=== PATIENT | male | born 1950 | race Caucasian/White ===

== ENCOUNTER 2018-04-02 21:30 | Inpatient (IN) | payer MEDICARE ==
--- NOTE | 2018-04-02 23:07 | CT ---
CT OF CERVICAL SPINE PERFORMED WITHOUT CONTRAST ENHANCEMENT: 04/02/18 HISTORY: Neck pain and bilateral extremity weakness associated with multiple falls. Vertebral bodies are normal in height. There is degenerative disc narrowing at C3-4, C4-5, C5-6 and C 6-7 with moderate degenerative facet changes. the facets do appear to be in normal alignment. Some ve ry mild bilateral foraminal narrowing at C2-3 and C3-4 as well as the C4-5 level. There is moderate r ight sided foraminal narrowing at C5-6. There is no CT evidence fracture. The lung apices are clear. IMPRESSION: No CT evidence of fracture of the cervical spine. POS: [facility]
[2018-04-03] MEDS ORDERED: Mag-Al 1200 mg/1200 mg/30 ML UDCUP PO PRN (00:23)
[2018-04-03] MEDS ORDERED: Milk Of Magnesia 30 ML UDCUP PO PRN (00:23)
[2018-04-03] MEDS ORDERED: CCU Electrolyte Replacement 1 EACH IVPB ONE (00:23)
[2018-04-03] MEDS ORDERED: Potassium Chloride 40 MEQ in Premix Bag 1 BAG IVPB PRN (00:39)
[2018-04-03] MEDS ORDERED: CCU ELECTROLYTE REPLACEMENT PROTOCOL FS PRN (00:39)
[2018-04-03] MEDS ORDERED: Potassium Phosphate 15 MMOL in Sodium Chloride 0.9% 250 ML 250 ML IV PRN (00:39)
[2018-04-03] MEDS ORDERED: Magnesium 2 GM/NS 0.9% 100 ML 2 GM in Premix Bag 1 BAG IVPB PRN (00:39)
[2018-04-03] MEDS ORDERED: Potassium Chloride 40 MEQ in Sodium Chloride 0.9% 250 ML 250 ML IVPB PRN (00:39)
[2018-04-03] MEDS ORDERED: Potassium Chloride 20 MEQ TAB PO PRN (00:39)
[2018-04-03] MEDS ORDERED: Potassium Phosphate 12 MMOL in Sodium Chloride 0.9% 250 ML 250 ML IV PRN (00:39)
[2018-04-03] MEDS ORDERED: Potassium Phosphate 9 MMOL in Sodium Chloride 0.9% 100 ML IVPB PRN (00:39)
[2018-04-03] MEDS ORDERED: Magnesium Oxide 400 MG TAB PO PRN ×2 (00:39)
[2018-04-03] MEDS ORDERED: [UNRECOGNIZED DRUG - REMARK] FS SCH (00:45)
[2018-04-03] MEDS: Acetaminophen 325 MG TAB PO PRN ×3 (00:47→14:27)
[2018-04-03] MEDS: Sodium Chloride 0.9% 1,000 ML IV SCH (01:23)
--- NOTE | 2018-04-03 01:56 | HP ---
DATE OF CONSULTATION: 04/02/2018 This is a 50-minute initial evaluation in which greater than 50% of the exam was spent counseling and coordinating patient's care. Remainder of the exam was spent in review of patient's medical records and appropriate imaging studies. CHIEF COMPLAINT: Increased falls over the past 2 weeks with right acute on chronic subdural hematoma . HISTORY OF PRESENT ILLNESS: Mr. Szymanski is a pleasant 67-year-old male who presents to [facility] as a transfer from [place] for the above complaint. The patient states falls are no t unusual for him as he has a component of orthostatic hypotension as well as peripheral neuropathy t hat causes him to lose his balance and have altered gait. He does note, however, over the past 2 wee ks that his falls have increased. He states normally he is a very hard worker and is able to lift 50 -pound bags of feed, but has felt subjective weakness into the bilateral lower extremities. 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 He is on Effient for this and takes a baby aspirin every other day. He currently c omplains of headache in the bilateral frontal area behind the eyes. He normally has neck pain due to arthritis and does state currently he has no increase in his neck pain. Denies radicular symptoms. Review of CT scan from [facility] in [place] shows a very large acute on chronic right-sided subdural h ematoma with 10-mm of midline shift. Review of patient's cervical spine CT appears to be negative fo r any acute findings. PHYSICAL EXAMINATION: The patient is awake, alert, and appropriate. GCS currently is 15. He is in an Ubly collar. He has full strength in the right upper and right lower extremity; however, has sepideh e trace weakness diffusely throughout the right, but also has weakness into the left leg greater than left arm. He does appear to have moderate weakness in dorsiflexion and plantar flexion on the left. He does also have some pronator drift on the left. Eyes: Pupils are equal, round, and reactive bi laterally. He is also appropriately conversant. He has no worrisome myelopathic features on exam. IMPRESSION: Status post multiple falls with acute on chronic subdural hematoma on Effient for histor y of ID and stent. PLAN: Discussed the patient's case and imaging with Dr. Briones. At this time, the patient is neurol ogically stable; however, he will need evacuation of his subdural fluid collection. Therefore, we pl anned to take the patient to the OR tomorrow for right bur hole placement with possibility of a conve rsion to right-sided craniotomy. I would like him to hold his Effient and we will also give him a si x-pack of platelets while he is in the ER. I would like his systolic blood pressure to remain less t montez 150. At this time, I would like him to remain in his collar, although again it does not appear t hat he has any acute fracture on cervical spine. Head of bed should be elevated at 30 and he will be on bed rest and Fragoso has already been placed. We will also consult Critical Care. I did update th e patient's , as well as his daughter who is a family practice physician by phone. We did discus s the risks and benefits of bur hole versus craniotomy and they wish to proceed in the morning. We w ill plan to take him again to the OR in the morning, should his neurologic status change in the meant haily, plan for more emergent intervention. He will be on q.1-hour neuro checks. Please call with any questions or change in patient's neurologic status.
[2018-04-03 04:13] LABS: #Basophils 0.1 thou/uL (0.0-0.2); #Eosinphils 0.2 thou/uL (0.0-0.7); #Lymphocytes 2.1 thou/uL (1.20-3.40); #Neutrophils 4.1 thou/uL (1.40-6.50); %Basophils 0.7 % (0.0-1.0); %Eosinophils 3.2 % (0.0-10.0); %Lymphocytes 27.8 % (21.0-51.0); %Monocytes 12.8 % (0.0-10.0); %Neutrophils 55.4 % (42.0-75.0); Hemoglobin 13.6 g/dL (14.0-18.0); Mean Corpuscular HGB CONC 32.3 g/dL (32.0-36.0); Mean Corpuscular Hemoglobin 28.9 pg (27.0-31.0); Mean Corpuscular Volume 89.5 fL (78.0-98.0); Mean Platelet Volume 7.4 fL (7.4-10.4); Platelet Count 275 thou/uL (130-400); RBC Distribution Width 13.3 % (11.5-14.5); Red Blood Cell (RBC) Count 4.72 mill/uL (4.70-6.10); White Blood Cell (WBC) Count 7.4 thou/uL (4.8-10.8)
[2018-04-03 04:20] LABS: PTT 29.1 SEC (22.9-36.1); Prothrombin Time 13.1 SEC (12.0-14.7)
[2018-04-03 04:37] LABS: Anion Gap 13 mmol/L (10-20); BUN (Urea Nitrogen) 10 mg/dL (8.4-25.7); Calc. Creatinine Clearance 108 mL/min (70-130); Calcium 9.2 mg/dL (7.8-10.44); Carbon Dioxide 29 mmol/L (23-31); Chloride 100 mmol/L (98-107); Estimated GFR-MDRD 75; Glucose 132 mg/dL (80-115); Potassium 3.3 mmol/L (3.5-5.1); Sodium 139 mmol/L (136-145)
[2018-04-03] MEDS: hydrALAZINE 20 MG/ML VIAL SLOW IVP PRN ×4 (04:52→21:38)
[2018-04-03] MEDS ORDERED: Carvedilol 3.125 MG TAB PO SCH (08:30)
[2018-04-03] MEDS: Potassium Chloride 20 MEQ in Premix Bag 1 BAG IVPB SCH ×4 (08:32→14:22)
[2018-04-03] MEDS ORDERED: Sodium Chloride 0.9% 0 ML ONE (08:56)
[2018-04-03] MEDS ORDERED: Lidocaine 0.5%/Epinephrine 1:200,000 50 ml Vial ONE (08:56)
[2018-04-03] MEDS ORDERED: Bacitracin Zinc Ointment 30 gm TUBE ONE (08:57)
[2018-04-03] MEDS ORDERED: Thrombin 5000 UNITS/5 ML VIAL ONE (08:57)
[2018-04-03] MEDS ORDERED: PROPOFOL 20 ML ONE (09:56)
[2018-04-03] MEDS ORDERED: Fentanyl 100 MCG/2 ML VIAL ONE ×2 (09:56→12:05)
[2018-04-03] MEDS ORDERED: Lidocaine 1% PF 5 ML VIAL ONE ×2 (09:56→11:31)
[2018-04-03] MEDS ORDERED: PHENYLEPHRINE-NS 100 MCG/ML 10 ML SYRINGE ONE ×2 (09:59→11:31)
[2018-04-03] MEDS ORDERED: CEFAZOLIN 1 GM VIAL ONE (10:39)
[2018-04-03] MEDS ORDERED: ePHEDrine/0.9% NaCl/PF SYRINGE 50 mg/10 ml ONE ×2 (10:43→11:31)
[2018-04-03] MEDS ORDERED: Sodium Chloride 0.9% 10 ML ONE (10:56)
[2018-04-03] MEDS ORDERED: Ondansetron PF 4 MG/2 ML Vial ONE ×2 (11:00→11:31)
--- NOTE | 2018-04-03 11:06 | PRG ---
DATE OF SERVICE: 04/03/2018 This is a 30-minute initial hospital visit note in which 30 minutes were spent in review the imaging record, evaluation, examination of the patient, and formulation of plan. Greater than 50% of the dorina e was spent in counseling on Mike Szymanski. CHIEF COMPLAINT: Right chronic subdural hematoma with neurologic decline and left-sided hemiplegia. HISTORY OF PRESENT ILLNESS: I reviewed the notes of my colleague Lit Jordan PA-C. Mr. Szymanski i s a 67-year-old man on antiplatelet agent. He has had progressive headache and left-sided weakness. Head CT from [place] demonstrates a large right-sided chronic subdural hematoma. With midline shift, undoubtedly the culprit of his symptoms, I have recommended surgery. On exam, he is drowsy wi th following commands in the right upper and right lower extremity briskly however, with weakness in the left upper extremity and significant weakness on his left upper extremity and significant weaknes s in the left lower extremity. He has received a six pack of platelets. Given his qualitative platel et deficiency due to the medication, I have discussed the case with his family and they wish to proce ed. Informed consent has been obtained and the goals, risks, indications, alternatives, complication s were discussed in detail with the patient's family. They wish to proceed with surgery. DIAGNOSIS: Right-sided chronic subdural hematoma with left-sided weakness and neurologic decline.
[2018-04-03] MEDS ORDERED: PROPOFOL 200 MG/20 ML VIAL ONE (11:31)
--- NOTE | 2018-04-03 11:43 | OP ---
OR: 11. WOUND TYPE: Type 1 wound. SURGEON: Feng Briones M.D. PUBLIC HEALTH CLINICAL NURSE SPECIALIST: Lit Jordan PA-C. A modifier 57 should be added to this surgery as decision to operate was made on the day I saw the colleen gonzales. PREPROCEDURE DIAGNOSIS: Large right-sided chronic subdural hematoma with mass effect, midline shift, and neurological decline, on antiplatelet agent. POSTPROCEDURE DIAGNOSES: Large right-sided chronic subdural hematoma with mass effect, midline shift , and neurological decline, on antiplatelet agent. PROCEDURE: Right frontoparietal haley hole evacuation and placement of subdural drain to treat subdur al hematoma. DESCRIPTION OF PROCEDURE: After informed consent was obtained from the patient and his family, the p atient was brought to OR 11. Proper patient pause and identification was carried out. A small amoun t of hair was clipped in the right frontoparietal region. This area sterilely cleansed, prepared, an d draped. Proper patient pause and identification was carried out. Right frontal and right parietal wounds were infiltrated with lidocaine with epinephrine. Proper patient pause and identification wa s again carried out. This whole area was sterilely cleansed, prepared, and draped. We then opened t he right frontoparietal wounds. Haley holes were fashioned. The dura opened and motor oil fluid was removed consistent with chronic subdural hematoma. I visualized the citlali underneath and copious irrig ation occurred throughout. A red rubber catheter was then placed into the subdural space and secured to the scalp. Wounds were then closed in anatomic layers. The drain was connected to a bag. The p atient then emerged from anesthesia.
[2018-04-03] MEDS ORDERED: Ondansetron HCl/PF 4 MG/2 ML Vial IVP PRN (11:44)
[2018-04-03] MEDS ORDERED: Promethazine HCl 25 MG/ML VIAL IM PRN (11:44)
[2018-04-03] MEDS ORDERED: Promethazine HCl 25 MG/ML VIAL SLOW IVP PRN (11:44)
[2018-04-03] MEDS ORDERED: Dextrose 5% in Water 1,000 ML IV PRN (12:55)
[2018-04-03] MEDS ORDERED: Dextrose 50% Abboject 50 ML SYRINGE SLOW IVP PRN (12:55)
--- NOTE | 2018-04-03 12:55 | CON ---
DATE OF CONSULTATION: 04/03/2018 SERVICE: Pulmonary Medicine. REASON FOR CONSULTATION: ICU patient. HISTORY OF PRESENT ILLNESS: The patient is a 67-year-old white male with past medical history significant for essentially nothing. He was in his usual state of health until 2 weeks ago when he started having clumsiness, weakness on the left side. He was unable to lift 50 pound bags of feed anymore. He started having multiple falls and ultimately came to the emergency department where a subdural hematoma was identified. It was evolving and got larger. He went down for an operation today. Following the craniotomy, he had a significant improvement in neurologic function in the left lower extremity. He denies any current fevers, chills, nausea or vomiting. Other than neurologic symptoms, he was in his usual state of health. PAST MEDICAL HISTORY: 1. Type 2 diabetes mellitus. 2. Hypertension. 3. Dyslipidemia. 4. Coronary artery disease. 5. Gastroesophageal reflux disease. PAST SURGICAL HISTORY: 1. Percutaneous coronary intervention. 2. Right frontoparietal haley hole evacuation and placement of subdural drain. FAMILY HISTORY: Noncontributory. SOCIAL HISTORY: He drinks seldomly. He denies significant smoking, or illicit drug use. He has no exposure to chemicals, dusts, asbestos or tuberculosis. ALLERGIES: No known drug allergies. MEDICATIONS: List of his inpatient medications were reviewed. They were modified. PHYSICAL EXAMINATION: VITAL SIGNS: Afebrile, pulse 83, blood pressure 165/84, respirations 17, saturation 93% on room air. GENERAL: Patient is awake and alert. No apparent distress. LUNGS: Decent air entry with a slightly prolonged expiratory phase. There is no wheezing or rhonchi present. HEART: Normal rate, regular. ABDOMEN: Soft, nontender, nondistended. Bowel sounds are positive. MUSCULOSKELETAL: No cyanosis or clubbing. There is no pitting in the bilateral lower extremities. NEUROLOGIC: Grossly nonfocal. LABORATORY DATA: WBC 7.4, hemoglobin 13.6, platelets 275,000. INR 1.0. Basic metabolic profile, liver function studies are unremarkable. Cardiac enzymes are negative x1. Potassium is 3.3. ASSESSMENT: 1. Subdural hematoma, status post evacuation, postop day #0. 2. Type 2 diabetes mellitus. 3. Hypertension. 4. Coronary artery disease. DISCUSSION AND PLAN: Since the patient is doing so well, we will have his swallow evaluated. If he can swallow, we will give him a diet, and restart some of his home medications. Obviously, antiplatelet drugs will be interrupted. He will remain in the ICU with frequent neuro checks. We will get him to the floor once the drain is removed. 70 minutes have been devoted to this patient in various activities. I personally reviewed all imaging studies and laboratory data noted within this document. For fifty percent of this time, I was interacting with the patient at the bedside or coordinating care with the care team. For the remainder of the time I was immediately available to the patient in the hospital unit. SIDNEY
[2018-04-03] MEDS: Carvedilol 3.125 MG TAB PO SCH (17:33)
[2018-04-03] MEDS: traMADol HCl 50 MG TAB PO PRN (17:33)
[2018-04-03] MEDS ORDERED: CEFAZOLIN 2 GM in Sodium Chloride 0.9% 100 ML IVPB SCH (18:00)
[2018-04-03] MEDS: CEFAZOLIN/Water 2 GM/20 ML SYRINGE SLOW IVP SCH (18:35)
[2018-04-03] MEDS: Famotidine 20 MG TAB PO SCH (21:40)
[2018-04-03] MEDS: Rosuvastatin 10 MG TAB PO SCH (21:40)
[2018-04-03] MEDS: buPROPion 75 MG TAB PO SCH (21:41)
[2018-04-03] MEDS: HumaLOG 300 UNITS/3 ML VIAL SC PRN (21:49)
[2018-04-03] MEDS: HYDROcodone/Acetaminophen 5/325 mg Tablet PO PRN (23:00)
[2018-04-04] MEDS: Acetaminophen 325 MG TAB PO PRN ×2 (01:33→11:39)
[2018-04-04] MEDS: Sodium Chloride 0.9% 1,000 ML IV SCH (01:38)
[2018-04-04] MEDS: CEFAZOLIN/Water 2 GM/20 ML SYRINGE SLOW IVP SCH ×3 (02:05→17:04)
[2018-04-04] MEDS ORDERED: Levothyroxine 150 MCG TAB PO SCH (06:00)
[2018-04-04] MEDS: Levothyroxine Sodium 112 MCG TAB PO SCH (06:42)
[2018-04-04] MEDS: HumaLOG 300 UNITS/3 ML VIAL SC PRN ×3 (06:43→21:36)
[2018-04-04] MEDS: DULoxetine 60 MG CAP PO SCH (09:03)
[2018-04-04] MEDS: Carvedilol 3.125 MG TAB PO SCH ×2 (09:03→17:04)
[2018-04-04] MEDS: buPROPion 75 MG TAB PO SCH ×2 (09:04→21:33)
[2018-04-04] MEDS: HYDROcodone/Acetaminophen 5/325 mg Tablet PO PRN ×2 (09:04→21:33)
[2018-04-04] MEDS: Famotidine 20 MG TAB PO SCH ×2 (09:04→21:34)
[2018-04-04] MEDS: Amlodipine 5 mg/Benazepril 20 mg CAP PO SCH (09:05)
--- NOTE | 2018-04-04 10:08 | PRG ---
DATE OF SERVICE: 04/04/2018 Mr. Szymanski is postoperative day 1 from a right cerebral evacuation of his subdural hematomas. Postop erative CT is satisfactory. We did have to sit the patient up as he has significant COPD and cannot lie flat and as such for pulmonary issues, we sat him postoperatively. This was slow reexpansion of his brain and I am not surprised that he still has irrigation and pneumocephalus. This is obviously found on postoperative CTs. His drain output is 250 mL and I will leave his drain in place. We will slowly start to mobilize him today. Anticipate another day or two in the ICU. He has a good family situation with his and son at home, and as such, I am optimistic about sending him home over th e course of the next 3-5 days. Of note, he is on Ancef. I should note neurologically he is alert an d fully lucid and appropriate. He moves all extremities to command with perhaps trace left-sided wea kness, although he is able to lift his left leg up off the bed along with his left arm and as such, h e is significantly improved compared to before surgery.
[2018-04-04] MEDS ORDERED: Insulin Glargine 9 UNITS in Pre-Filled Syringe 1 EACH SC SCH (11:00)
[2018-04-04] MEDS: HumaLOG 300 UNITS/3 ML VIAL SC SCH ×2 (11:40→17:05)
--- NOTE | 2018-04-04 11:48 | CT ---
PRELIMINARY REPORT/[facility]/EMERGENCY AFTER HOURS PROCEDURE: Addendum created by Zuhair Corona MD on 04/04/2018 6:51 AM Central Time ([place] & [place]) Findings were di scussed with HALLE JOY at 04/04/2018 6:51 AM CDT. Initial Report created on 04/04/2018 5:54 AM Central Time ([place] & [place]) EXAM: CT Head Without Intravenous Contrast EXAM DATE/TIME: 04/04/2018 5:04 AM CLINICAL HISTORY: 67 years old, male; Condition or disease; Aneurysm, cerebral; Patient HX: S/P right haley hole evacuat ion TECHNIQUE: Axial computed tomography images of the head/brain without intravenous contrast. COMPARISON: No relevant prior studies available. FINDINGS: Brain: There is a RIGHT frontoparietal convexity subdural collection with hemorrhage and air post RIG HT frontal haley hole and drain placement. Mass effect on the RIGHT frontoparietal lobe is noted. Midline shift: There is RIGHT to LEFT midline shift of 9 mm. Ventricles: Normal. No ventriculomegaly. Bones/joints: An old RIGHT parietal haley hole is noted Sinuses: Normal as visualized. No acute sinusitis. Mastoid air cells: Normal as visualized. No mastoid effusion. Soft tissues: There are RIGHT scalp surgical sutures. IMPRESSION: RIGHT subdural hemorrhage post drain placement with midline shift of 9 mm. Correlation with prior padmaja ging (not currently available) is advised. Thank you for allowing us to participate in the care of your patient. Dictated and Authenticated by: Zuhair Corona MD 04/04/2018 5:54 AM Central Time ([place] & [place]) FINAL REPORT EMERGENCY AFTER HOURS BRAIN CT WITHOUT IV CONTRAST: Date: 04/04/18 Time: 0505 hours Large right subdural hemorrhage following placement of a right-sided drain with midline shift of appr oximately 0.9 cm to the left. No prior imaging available. Report in agreement with preliminary report given on-call by Anabelle. POS: [facility]
--- NOTE | 2018-04-04 12:22 | PRG ---
DATE OF SERVICE: 04/04/2018 SERVICE: Pulmonary Medicine. INTERVAL HISTORY: The patient is doing great from a respiratory standpoint. Mentation [place], he is d oing fantastic. He demonstrates excellent strength. Otherwise, there were no overnight events. His blood pressures are within our parameters. PHYSICAL EXAMINATION: VITAL SIGNS: Afebrile, pulse 66, blood pressure 153/74, respirations 14, saturation 94% on room air. GENERAL: The patient is awake, alert, in no apparent distress. LUNGS: Decreased air entry. There is a slightly prolonged expiratory phase. No wheezing or rhonchi are appreciated. HEART: Normal rate, regular. ABDOMEN: Soft, nontender, nondistended. Bowel sounds are positive. MUSCULOSKELETAL: No cyanosis or clubbing. There is no pitting in the bilateral lower extremities. NEUROLOGIC: Grossly nonfocal. LABORATORY DATA: Blood sugar ranges from 143-216. IMAGING: CT of the brain demonstrates interval evacuation of the hematoma. A drain is present in th e subdural space with appropriate pneumocephalus. ASSESSMENT: 1. Subdural hematoma, status post evacuation, postoperative day 1. 2. Type 2 diabetes mellitus. 3. Hypertension. 4. Coronary artery disease. DISCUSSION AND PLAN: We will continue our supportive care. The patient is going to remain in the IC U for an additional 24 hours, so we can watch his neurologic status closely. If the drain output dec reases, he will likely have the drain removed today or tomorrow. Pulmonary Critical Care will contin ue to follow along in this location. We will start mobilization efforts by getting the patient out o f bed and into a chair and enlisting physical therapy.
[2018-04-04] MEDS: Docusate 100 MG CAP PO PRN (17:04)
[2018-04-04] MEDS: Rosuvastatin 10 MG TAB PO SCH (21:34)
[2018-04-04] MEDS: Ondansetron PF 4 MG/2 ML Vial IVP PRN (23:55)
[2018-04-05] MEDS: traMADol HCl 50 MG TAB PO PRN ×2 (00:19→14:33)
[2018-04-05] MEDS: CEFAZOLIN/Water 2 GM/20 ML SYRINGE SLOW IVP SCH ×3 (03:28→20:31)
[2018-04-05] MEDS: Sodium Chloride 0.9% 1,000 ML IV SCH ×2 (03:29→03:36)
[2018-04-05] MEDS: Levothyroxine Sodium 112 MCG TAB PO SCH (05:32)
[2018-04-05] MEDS: HYDROcodone/Acetaminophen 5/325 mg Tablet PO PRN ×4 (05:32→23:47)
[2018-04-05] MEDS: Ondansetron PF 4 MG/2 ML Vial IVP PRN (05:35)
[2018-04-05] MEDS: HumaLOG 300 UNITS/3 ML VIAL SC SCH ×3 (07:55→17:02)
[2018-04-05] MEDS: Famotidine 20 MG TAB PO SCH ×2 (08:16→20:45)
[2018-04-05] MEDS: Carvedilol 3.125 MG TAB PO SCH ×2 (08:16→17:02)
[2018-04-05] MEDS: DULoxetine 60 MG CAP PO SCH (08:16)
[2018-04-05] MEDS: buPROPion 75 MG TAB PO SCH ×2 (09:00→20:45)
[2018-04-05] MEDS ORDERED: Insulin Glargine 9 UNITS in Pre-Filled Syringe 1 EACH SC SCH (09:00)
[2018-04-05] MEDS: Amlodipine 5 mg/Benazepril 20 mg CAP PO SCH (09:00)
--- NOTE | 2018-04-05 09:23 | PRG-2 ---
DATE OF SERVICE: 04/05/2018 Mr. Szymanski is now postoperative day #2, having undergone right-sided bur hole placement for evacuatio n of acute on chronic subdural hematoma. He is slightly sleepier today than he was yesterday, but GC S is 15. He follows commands equally with perhaps some trace weakness into the left lower extremity similar to what it was yesterday. He does state that he did not sleep very well and feels that he mann s less energy today, but otherwise denies headache, blurred vision, nausea, vomiting or changes in le ft extremity weakness. His drain slowly trend down and appears as though it has put out roughl y 200 mL in the last 24 hours. We will continue to drain as well as and at this time, monitor his neurologic exam, although it does not appear that he needs repeat head CT at this time. Likely, he will be ready for transition to the floor tomorrow, but again, we will need to continue to monitor his status. Please call with any changes in the patient's neurologic status.
--- NOTE | 2018-04-05 09:32 | PRG ---
DATE OF SERVICE: 04/05/2018 SERVICE: Pulmonary Medicine INTERVAL HISTORY: The patient is doing okay from a respiratory standpoint. He is breathing comforta george. There has been no interval change to his condition. He denies any current fevers, chills, naus ea or vomiting. Neurologically, he is intact. He has a drain that is in place. It is currently cla mped. PHYSICAL EXAMINATION: VITAL SIGNS: Afebrile, pulse 89, blood pressure 138/89, respirations 19, saturation 94% on room air. GENERAL: The patient is awake, alert, in no apparent distress. LUNGS: Excellent air entry. There are no crackles, wheezing or rhonchi present. There is no prolon ged expiratory phase. HEART: Normal rate, regular. ABDOMEN: Soft, nontender, nondistended. Bowel sounds are positive. MUSCULOSKELETAL: No cyanosis or clubbing. There is no pitting in the bilateral lower extremities. NEUROLOGIC: Grossly nonfocal. LABORATORY DATA: Blood sugars ranged from 145-235. His evening sugar is most elevated. ASSESSMENT: 1. Subdural hematoma, status post evacuation, postoperative day #2. 2. Type 2 diabetes mellitus. 3. Hypertension. 4. Coronary artery disease. DISCUSSION AND PLAN: I will increase our long-acting insulin a touch. Otherwise, supportive managem ent will be continued while we continue our frequent neuro checks in the ICU. The patient will remai n in place until the drain is out and he is stable for a period of time.
[2018-04-05] MEDS ORDERED: Insulin Glargine 3 UNITS in Pre-Filled Syringe 1 EACH SC SCH (09:45)
[2018-04-05] MEDS: HumaLOG 300 UNITS/3 ML VIAL SC PRN ×2 (11:42→17:02)
--- NOTE | 2018-04-05 15:24 | PQF ---
JESUS CARLSON JR, JASON MD [id number] CLINICAL DOCUMENTATION IMPROVEMENT CLARIFICATION FORM: ICD-10 Updated PLEASE DO AN ADDENDUM TO THE PROGRESS NOTE WITH ANY DOCUMENTATION UPDATES OR ADDITIONS AND CARRY THROUGH TO DC SUMMARY. THANK YOU. DATE: 04-05-18 ATTN: DR. SANDS Please exercise your independent, professional judgment in responding to the clarification form. Clinical indicators are provided on the bottom of this form for your review Please check appropriate box(s): [ ] Cerebral edema / Vasogenic edema - W/ Right-sided subdural hematoma [ ] Compression of brain - W/ Right -sided subdural hematoma [ ] Other diagnosis [ ] Unable to determine For continuity of documentation, please document condition throughout progress notes and discharge summary. Thank You. CLINICAL INDICATORS - SIGNS / SYMPTOMS / LABS 10-12 H&P (BENITA): ACUTE ON CHRONIC RIGHT-SIDED SUBDURAL HEMATOMA W/ 10-MM OF MIDLINE SHIFT CT SCAN FROM [facility] ACUTE ON CHRONIC RIGHT-SIDED SURBDURAL HEMATOMA W/ 10-MM OF MIDLINE SHIFT 04-03 (SANDS): MIDLINE SHIFT 10-13 (SANDS): LARGE RIGHT-SIDED CHRONIC SUBDURAL HEMATOMA W/ MASS EFFECT, MIDLINE SHIFT, AND NEUROLOGICAL DECLINE, ON ANTIPLATELET AGENT RISK FACTORS 10-12 H&P (BENITA): ACUTE ON CHRONIC RIGHT-SIDED SUBDURAL HEMATOMA W/ 10-MM OF MIDLINE SHIFT - (SANDS): LARGE RIGHT-SIDED CHRONIC SUBDURAL HEMATOMA W/ MASS EFFECT, MIDLINE SHIFT, AND NEUROLOGICAL DECLINE, ON ANTIPLATELET AGENT TREATMENTS: CPOE: CCU MONITORING - (SANDS - OP NOTE): RIGHT FRONTOPARIETAL ANN HOLE EVACUATION AND PLACEMENT OF SUBDURAL DRAIN TO TREAT SUBDURAL HEMATOMA THANK YOU, LAQUITA (This form is maintained as a part of the permanent medical record) 2015 [employer]. All Rights Reserved Laquita Barrera RN, BS [email or web address] [facility]
[2018-04-05] MEDS: Rosuvastatin 10 MG TAB PO SCH (20:45)
[2018-04-05] MEDS: Acetaminophen 325 MG TAB PO PRN (22:24)
[2018-04-06] MEDS: CEFAZOLIN/Water 2 GM/20 ML SYRINGE SLOW IVP SCH ×2 (01:58→11:59)
[2018-04-06] MEDS: traMADol HCl 50 MG TAB PO PRN ×2 (01:58→12:35)
[2018-04-06] MEDS: Sodium Chloride 0.9% 1,000 ML IV SCH (01:59)
[2018-04-06] MEDS: HumaLOG 300 UNITS/3 ML VIAL SC PRN ×3 (06:26→17:12)
[2018-04-06] MEDS: Levothyroxine Sodium 112 MCG TAB PO SCH (06:30)
[2018-04-06] MEDS: Insulin Glargine 12 UNITS in Pre-Filled Syringe 1 EACH SC SCH (08:33)
[2018-04-06] MEDS: Carvedilol 3.125 MG TAB PO SCH ×2 (08:34→17:10)
[2018-04-06] MEDS: HYDROcodone/Acetaminophen 5/325 mg Tablet PO PRN ×2 (08:34→15:42)
[2018-04-06] MEDS: buPROPion 75 MG TAB PO SCH (08:34)
[2018-04-06] MEDS: HumaLOG 300 UNITS/3 ML VIAL SC SCH ×3 (08:34→17:11)
[2018-04-06] MEDS: DULoxetine 60 MG CAP PO SCH (08:34)
[2018-04-06] MEDS: Famotidine 20 MG TAB PO SCH ×2 (08:35→21:18)
[2018-04-06] MEDS: Amlodipine 5 mg/Benazepril 20 mg CAP PO SCH (08:35)
[2018-04-06] MEDS ORDERED: Nitroglycerin 0.4 MG TAB (25 Tab Bottle) SL PRN (10:06)
[2018-04-06] MEDS ORDERED: Diazepam 5 MG TAB PO PRN (10:06)
[2018-04-06] MEDS ORDERED: Furosemide 20 MG TAB PO PRN (10:06)
[2018-04-06] MEDS: Docusate 100 MG CAP PO PRN (10:28)
[2018-04-06] MEDS: Ondansetron PF 4 MG/2 ML Vial IVP PRN ×2 (11:38→17:16)
--- NOTE | 2018-04-06 11:44 | PRG ---
DATE OF SERVICE: 04/06/2018 SERVICE: Pulmonary Medicine. INTERVAL HISTORY: The patient has 2 big complaints today. He has a continuous headache. The Tyleno l and Durand is really not touching him. He typically takes Aleve for these types of things at home. He also has complaints that the Fragoso catheter still in place. Otherwise, there has been no interva l change to his condition. Neurologically, he is intact. He denies any fevers, chills, nausea, vomi ting or shortness of breath, otherwise. OBJECTIVE: VITAL SIGNS: Afebrile, pulse 56, blood pressure 151/79, respirations 12, saturation 96% on room air. GENERAL: The patient is awake, alert, no apparent distress. LUNGS: Excellent air entry. There is no prolonged expiratory phase or wheezing present. HEART: Normal rate and regular. ABDOMEN: Soft, nontender, nondistended. Bowel sounds are positive. MUSCULOSKELETAL: No cyanosis or clubbing. There is no pitting in the bilateral lower extremities. NEUROLOGIC: Grossly nonfocal. LABORATORY DATA: Blood sugars ranged from 144-235. ASSESSMENT: 1. Subdural hematoma, status post evacuation, postoperative day #3. 2. Type 2 diabetes mellitus. 3. Hypertension. 4. Coronary artery disease. We will further increase her long-acting insulin. Once the drain is out, if he remains neurologicall y intact, he could be transitioned to the floor. At that location, of note, he will have no further need for Pulmonary or Critical Care opinion. As such, I will sign off. Please call with additional questions or concerns moving forward.
[2018-04-06] MEDS: Acetaminophen 325 MG TAB PO PRN (12:35)
--- NOTE | 2018-04-06 12:43 | PRG ---
DATE OF NOTE: 04/06/2018 Mr. Szymanski is postoperative day 3 from right-sided frontal and parietal bur hole evacuation for subdu ral hematoma. His drain output has been approximately 450 mL. We will plan to remove this. At this point, the drainage has diminished in rate. He neurologically is intact and very conversant certain ly much improved compared to before surgery. We will plan to transfer him to the floor and mobilize him more. His Fragoso catheter may be removed. If he meets criteria potentially tomorrow, the next da y he may be dismissed. He has a good family structure at home.
--- NOTE | 2018-04-06 13:12 | ULT ---
BILTERAL LOWER EXTREMITY VENOUS ULTRASOUND WITH DOPPLER: HISTORY: Immobility since surgery. COMPARISON: None. TECHNIQUE: Lloyd scale, color flow, Doppler imaging with spectral waveform analysis is performed of the left and right lower extremity system. FINDINGS: Bilaterally, there is compressibility, presence of flow, and augmentation of the common femoral vein, femoral vein, and popliteal vein. There is flow in bilateral greater saphenous veins, profunda vein s, and posterior tibial veins. IMPRESSION: No evidence of thrombus in the left or right lower extremity deep venous system. POS: [facility]
[2018-04-06] MEDS: metFORMIN 500 MG TAB PO SCH (17:10)
[2018-04-06] MEDS ORDERED: Famotidine 20 MG TAB PO SCH (21:00)
[2018-04-06] MEDS ORDERED: Carvedilol 3.125 MG TAB PO SCH (21:00)
[2018-04-06] MEDS: Rosuvastatin 10 MG TAB PO SCH ×2 (21:18→21:29)
[2018-04-07] MEDS: hydrALAZINE 20 MG/ML VIAL SLOW IVP PRN (00:36)
[2018-04-07] MEDS: HYDROcodone/Acetaminophen 5/325 mg Tablet PO PRN ×2 (03:26→16:27)
[2018-04-07] MEDS: Acetaminophen 325 MG TAB PO PRN (05:20)
[2018-04-07] MEDS ORDERED: Levothyroxine Sodium 112 MCG TAB PO SCH (06:00)
[2018-04-07] MEDS: Levothyroxine Sodium 112 MCG TAB PO SCH (06:25)
[2018-04-07] MEDS: HumaLOG 300 UNITS/3 ML VIAL SC SCH ×3 (06:26→17:27)
[2018-04-07 06:37] VITALS: BMI 33.8
[2018-04-07] MEDS: metFORMIN 500 MG TAB PO SCH ×2 (08:25→17:27)
[2018-04-07] MEDS: Carvedilol 3.125 MG TAB PO SCH ×2 (08:25→17:27)
[2018-04-07] MEDS: Potassium Chloride 10 MEQ TAB PO SCH (08:26)
[2018-04-07] MEDS: Bupropion 150 MG XL TAB PO SCH (08:26)
[2018-04-07] MEDS: Amlodipine 5 mg/Benazepril 20 mg CAP PO SCH (08:26)
[2018-04-07] MEDS: DULoxetine 60 MG CAP PO SCH (08:26)
[2018-04-07] MEDS: Insulin Glargine 12 UNITS in Pre-Filled Syringe 1 EACH SC SCH (08:27)
[2018-04-07] MEDS: Fludrocortisone Acetate 0.1 MG TAB PO SCH (08:27)
[2018-04-07] MEDS: Famotidine 20 MG TAB PO SCH ×2 (08:27→20:20)
[2018-04-07] MEDS: lamoTRIgine 100 MG TAB PO SCH (08:27)
--- NOTE | 2018-04-07 08:50 | PQF ---
JESUS CARLSON JR, JASON MD [id number] CCU-[id number] CLINICAL DOCUMENTATION IMPROVEMENT CLARIFICATION FORM: ICD-10 Updated PLEASE DO AN ADDENDUM TO THE PROGRESS NOTE WITH ANY DOCUMENTATION UPDATES OR ADDITIONS AND CARRY THROUGH TO DC SUMMARY. THANK YOU. DATE: 04-05-18 ATTN: DR. SANDS Please exercise your independent, professional judgment in responding to the clarification form. Clinical indicators are provided on the bottom of this form for your review Please check appropriate box(s): [ ] Cerebral edema / Vasogenic edema - W/ Right-sided subdural hematoma [ ] Compression of brain - W/ Right -sided subdural hematoma [ ] Other diagnosis [ ] Unable to determine For continuity of documentation, please document condition throughout progress notes and discharge summary. Thank You. CLINICAL INDICATORS - SIGNS / SYMPTOMS / LABS 10-12 H&P (BENITA): ACUTE ON CHRONIC RIGHT-SIDED SUBDURAL HEMATOMA W/ 10-MM OF MIDLINE SHIFT CT SCAN FROM [facility] ACUTE ON CHRONIC RIGHT-SIDED SUBDURAL HEMATOMA W/ 10-MM OF MIDLINE SHIFT 04-03 (SANDS): MIDLINE SHIFT 10-13 (SANDS): LARGE RIGHT-SIDED CHRONIC SUBDURAL HEMATOMA W/ MASS EFFECT, MIDLINE SHIFT, AND NEUROLOGICAL DECLINE, ON ANTIPLATELET AGENT RISK FACTORS 10-12 H&P (BENITA): ACUTE ON CHRONIC RIGHT-SIDED SUBDURAL HEMATOMA W/ 10-MM OF MIDLINE SHIFT - (SANDS): LARGE RIGHT-SIDED CHRONIC SUBDURAL HEMATOMA W/ MASS EFFECT, MIDLINE SHIFT, AND NEUROLOGICAL DECLINE, ON ANTIPLATELET AGENT TREATMENTS: CPOE: CCU MONITORING - (SANDS - OP NOTE): RIGHT FRONTOPARIETAL ANN HOLE EVACUATION AND PLACEMENT OF SUBDURAL DRAIN TO TREAT SUBDURAL HEMATOMA THANK YOU, LAQUITA (This form is maintained as a part of the permanent medical record) 2015 [employer]. All Rights Reserved Laquita Barrera RN, BS [email or web address] Cell [facility]
[2018-04-07] MEDS ORDERED: LAMOTRIGINE PO SCH (09:00)
[2018-04-07] MEDS ORDERED: LIRAGLUTIDE 1.8 MG SC SCH (09:00)
--- NOTE | 2018-04-07 11:16 | PRG ---
DATE OF SERVICE: 04/07/2018 Mr. Szymanski is recovering well on the Neurosurgical Sr. His drain has been removed. He is ambulati ng. His only complaint is a headache. We will plan for dismissal likely tomorrow.
[2018-04-07] MEDS: traMADol HCl 50 MG TAB PO PRN (13:44)
[2018-04-07] MEDS: Ondansetron PF 4 MG/2 ML Vial IVP PRN (16:27)
[2018-04-07] MEDS: Docusate 100 MG CAP PO PRN (20:20)
[2018-04-07] MEDS: Rosuvastatin 10 MG TAB PO SCH ×2 (20:20→22:15)
[2018-04-08] MEDS: HYDROcodone/Acetaminophen 5/325 mg Tablet PO PRN (02:45)
[2018-04-08] MEDS: Levothyroxine Sodium 112 MCG TAB PO SCH (06:45)
[2018-04-08] MEDS: HumaLOG 300 UNITS/3 ML VIAL SC SCH (06:46)
[2018-04-08] MEDS: lamoTRIgine 100 MG TAB PO SCH (08:35)
[2018-04-08] MEDS: Potassium Chloride 10 MEQ TAB PO SCH (08:36)
[2018-04-08] MEDS: Carvedilol 3.125 MG TAB PO SCH (08:36)
[2018-04-08] MEDS: DULoxetine 60 MG CAP PO SCH (08:37)
[2018-04-08] MEDS: metFORMIN 500 MG TAB PO SCH (08:37)
[2018-04-08] MEDS: Fludrocortisone Acetate 0.1 MG TAB PO SCH (08:38)
[2018-04-08] MEDS: Amlodipine 5 mg/Benazepril 20 mg CAP PO SCH (08:38)
[2018-04-08] MEDS: Bupropion 150 MG XL TAB PO SCH (08:39)
[2018-04-08] MEDS: Insulin Glargine 12 UNITS in Pre-Filled Syringe 1 EACH SC SCH (08:39)
[2018-04-08] MEDS: Famotidine 20 MG TAB PO SCH (08:39)
--- NOTE | 2018-04-08 09:50 | PRG ---
DATE OF SERVICE: 04/08/2018 Mr. Szymanski is postoperative day 5 from right-sided frontal haley hole evacuation of chronic subdural h ematoma. He is doing very well. His wounds are healing well. His drain has been removed. Neurolog ically, he is intact. I am very pleased with his outcome at this point. I have asked, he and his wi fe that he hold his dual antiplatelet therapy over the course of the next 4-6 weeks until I can get a head CT to assess his intracranial compartment. We will plan to see him in a couple of weeks to rem ove his мария. He will be dismissed today.
[2018-04-08 13:09] VITALS: BP 137/82; TEMP 98.2
--- NOTE | 2018-04-13 10:30 | PQF ---
JESUS CARLSON JR, JASON MD [id number] CCU-C07 [id number] CLINICAL DOCUMENTATION IMPROVEMENT CLARIFICATION FORM: ICD-10 Updated PLEASE DO AN ADDENDUM TO THE PROGRESS NOTE WITH ANY DOCUMENTATION UPDATES OR ADDITIONS AND CARRY THROUGH TO DC SUMMARY. THANK YOU. DATE: 04-05-18 ATTN: DR. SANDS Please exercise your independent, professional judgment in responding to the clarification form. Clinical indicators are provided on the bottom of this form for your review Please check appropriate box(s): [ ] Cerebral edema / Vasogenic edema - W/ Right-sided subdural hematoma [ ] Compression of brain - W/ Right -sided subdural hematoma [ ] Other diagnosis [ ] Unable to determine In addition, please specify: Present on Admission (POA): [ ] Yes [ ] No [ ] Unable to determine For continuity of documentation, please document condition throughout progress notes and discharge summary. Thank You. CLINICAL INDICATORS - SIGNS / SYMPTOMS / LABS 10-12 H&P (BENITA): ACUTE ON CHRONIC RIGHT-SIDED SUBDURAL HEMATOMA W/ 10-MM OF MIDLINE SHIFT CT SCAN [facility] ACUTE ON CHRONIC RIGHT-SIDED SUBDURAL HEMATOMA W/ 10-MM OF MIDLINE SHIFT 04-03 (WICHO): MIDLINE SHIFT 10-13 (WICHO): LARGE RIGHT-SIDED CHRONIC SUBDURAL HEMATOMA W/ MASS EFFECT, MIDLINE SHIFT, AND NEUROLOGICAL DECLINE, ON ANTIPLATELET AGENT RISK FACTORS 10-12 H&P (BENITA): ACUTE ON CHRONIC RIGHT-SIDED SUBDURAL HEMATOMA W/ 10-MM OF MIDLINE SHIFT - (WICHO): LARGE RIGHT-SIDED CHRONIC SUBDURAL HEMATOMA W/ MASS EFFECT, MIDLINE SHIFT, AND NEUROLOGICAL DECLINE, ON ANTIPLATELET AGENT TREATMENTS: CPOE: CCU MONITORING - (SANDS - OP NOTE): RIGHT FRONTOPARIETAL ANN HOLE EVACUATION AND PLACEMENT OF SUBDURAL DRAIN TO TREAT SUBDURAL HEMATOMA THANK YOU, LAQUITA (This form is maintained as a part of the permanent medical record) 2014 [employer]. All Rights Reserved Laquita Barrera RN, BS [email or web address] [facility]
--- NOTE | 2018-04-27 11:28 | DIS-2 ---
DATE OF ADMISSION: 04/02/2018 DATE OF DISCHARGE: 04/08/2018 DISCHARGE DIAGNOSES: Include, 1. Right acute on chronic traumatic subdural hematoma. 2. Type 2 diabetes mellitus. 3. Hypertension. 4. Dyslipidemia. 5. Coronary artery disease. 6. Gastroesophageal reflux disease. 7. History of myocardial infarction and remote stenting. 8. Possible cerebrovascular accident history. HOSPITAL COURSE: Mr. Szymanski was admitted to [facility] due to left-sided weakness and was n oted to have a large acute on chronic right subdural hematoma. He did undergo right-sided frontal an d parietal haley hole placement for evacuation of subdural hematoma on 04/03/2018 and his surgery was without complication. There was a drain placed and later removed due to satisfactory output. He did require several overnight stays to ensure that he was safe to go home. A venogram was done and niaun d to be negative for DVT. At the time of discharge, the patient had almost complete resolution of hi s left upper and lower extremity weakness and met criteria for discharge. Appropriate patient educat ion and followup appointments were provided for the patient and the patient and his understood t o call the office with questions or concerns prior to his next followup appointment. He was told to stay off all of his anticoagulants including Brilinta and aspirin.
== END 2018-04-08 11:17 | disposition home or self-care (01) | DRG 26 ==
LOC: ERS 21:30 → CCU 23:11 → SURG A 04-06 17:56
PROVIDERS: ADMIT Surgery; ATTEND Surgery
PROC: 00C43ZZ Extirpation of Matter from Intracranial Subdural Space, Percutaneous Approach (ICD-10-PCS; principal; 2018-04-02)
PROC: 30233N1 Transfusion of Nonautologous Red Blood Cells into Peripheral Vein, Percutaneous Approach (ICD-10-PCS; 2018-04-03)
DX: S06.5X9A Traumatic subdural hemorrhage with loss of consciousness of unspecified duration, initial encounter (principal); G81.94 Hemiplegia, unspecified affecting left nondominant side; W18.30XA Fall on same level, unspecified, initial encounter; R29.6 Repeated falls; I95.1 Orthostatic hypotension; G62.9 Polyneuropathy, unspecified; Z86.73 Personal history of transient ischemic attack (TIA), and cerebral infarction without residual deficits; I25.2 Old myocardial infarction; Z79.82 Long term (current) use of aspirin; M19.90 Unspecified osteoarthritis, unspecified site; I25.10 Atherosclerotic heart disease of native coronary artery without angina pectoris; E11.9 Type 2 diabetes mellitus without complications; I10 Essential (primary) hypertension; J44.9 Chronic obstructive pulmonary disease, unspecified; G93.89 Other specified disorders of brain; K21.9 Gastro-esophageal reflux disease without esophagitis; Z95.5 Presence of coronary angioplasty implant and graft
CPT/HCPCS: 36415; 36416; 36430; 70450; 72125; 80048; 85025; 85610; 85730; 86850; 86900; 86901; 90471; 90662; 93970; 96374; G0008; G8978-GP-CK; G8979-GP-CI; J0360; J0690; J2001; J2270; J2405; J2704; J3010; J3480; J3490; J7050; P9035

== ENCOUNTER 2018-05-18 22:07 | Inpatient (IN) | payer MEDICARE ==
[2018-05-18] MEDS ORDERED: Dextrose 50% Abboject 50 ML SYRINGE SLOW IVP PRN (23:24)
[2018-05-18] MEDS ORDERED: Ondansetron ODT 4 MG TAB PO PRN (23:24)
[2018-05-18] MEDS ORDERED: Ondansetron PF 4 MG/2 ML Vial IVP PRN (23:24)
[2018-05-18] MEDS ORDERED: Dextrose 5% in Water 1,000 ML IV PRN (23:24)
[2018-05-19 01:46] LABS: #Eosinphils 0.3 thou/uL (0.0-0.7); #Lymphocytes 2.5 thou/uL (1.20-3.40); #Neutrophils 4.3 thou/uL (1.40-6.50); %Basophils 0.5 % (0.0-1.0); %Eosinophils 3.6 % (0.0-10.0); %Lymphocytes 31.1 % (21.0-51.0); %Monocytes 11.8 % (0.0-10.0); %Neutrophils 52.9 % (42.0-75.0); Hemoglobin 13.5 g/dL (14.0-18.0); Mean Corpuscular Hemoglobin 29.1 pg (27.0-31.0); Mean Corpuscular Volume 88.1 fL (78.0-98.0); Mean Platelet Volume 7.7 fL (7.4-10.4); Platelet Count 254 thou/uL (130-400); RBC Distribution Width 13.5 % (11.5-14.5); Red Blood Cell (RBC) Count 4.64 mill/uL (4.70-6.10); White Blood Cell (WBC) Count 8.2 thou/uL (4.8-10.8)
[2018-05-19 01:57] LABS: Anion Gap 11 mmol/L (10-20); BUN (Urea Nitrogen) 21 mg/dL (8.4-25.7); Calc. Creatinine Clearance 0 mL/min (70-130); Calcium 8.9 mg/dL (7.8-10.44); Carbon Dioxide 31 mmol/L (23-31); Chloride 101 mmol/L (98-107); Estimated GFR-MDRD 74; Glucose 168 mg/dL (80-115); Magnesium 2.3 mg/dL (1.6-2.6); Potassium 3.4 mmol/L (3.5-5.1); Sodium 140 mmol/L (136-145)
[2018-05-19 02:27] LABS: CKMB 1.2 ng/mL (0-6.6); Troponin I Less than 0.010 ng/mL (< 0.028)
[2018-05-19] MEDS: Acetaminophen 500 MG TAB PO SCH ×4 (03:02→17:45)
--- NOTE | 2018-05-19 05:47 | HP ---
ATTENDING SURGEON: Dr. Quispe. TRAUMA ACTIVATION: Not applicable. HISTORY OF PRESENT ILLNESS: Mike Szymanski is a 67-year-old gentleman who presented to [facility] Emergency Room as a transfer from [place] [facility], status post presumed mechanical fall. The patient was seen and evaluated in the [place] Emergency Room and found to have an acute on chronic subdural hemorrhage. The patient has a GCS and has remained a GCS of 15. Neurosurgery was notified and Trauma Services was asked to admit. Upon my evaluation, the patient states that he stood up from his dinning room table and fell suddenly. He denies loss of consciousness. He initially had a headache, but his pain is now 0. He has been seen and evaluated by the Neurosurgical Team. PAST MEDICAL HISTORY: Frequent falls; chronic subdural, status post right haley hole evacuation; CAD; hypothyroidism; hypertension; diabetes; bipolar disorder; peripheral neuropathy; orthostatic hypotension; and cerebellar CVA. PAST SURGICAL HISTORY: Right-sided haley hole evacuation with Dr. Briones, PTCA, and lipoma removal. HOME MEDICATIONS: Include; 1. Metformin 1000 mg b.i.d. 2. Victoza. 3. Lasix 40 mg daily. 4. Carvedilol 25 mg b.i.d. 5. Synthroid 112 mcg daily. 6. Wellbutrin 150 mg b.i.d. 7. Cymbalta 60 mg daily. 8. Ranitidine 75 mg b.i.d. 9. Lamotrigine 200 mg daily. 10. Crestor 10 mg daily. 11. Nitroglycerin tablet 0.4 mg p.r.n. 12. Fludrocortisone 0.1 mg daily. 13. Potassium supplement 10 mEq daily. 14. Amlodipine/benazepril 10/40 mg daily. SOCIAL HISTORY: Lives at home with his . Ambulates with a walker. Occasional alcohol use. Denies tobacco or illicit drug use. FAMILY HISTORY: Significant for mother with COPD and lung cancer, and multiple children with bipolar disorder, Tourette's, and OCD. REVIEW OF SYSTEMS: A 10-point review of systems was performed and negative except as indicated in HPI. Specifically, the patient denies fevers, chills, nausea, vomiting, chest pain, shortness of breath, palpitations, dizziness, or syncopal or presyncopal symptoms. ALLERGIES: NO KNOWN ALLERGIES. LABORATORY FINDINGS: Pending. RADIOGRAPHIC FINDINGS: CT of the brain demonstrated acute on chronic right subdural hematoma with stable amount of midline shift compared to his most recent postoperative CT scan. ASSESSMENT: 1. Status post mechanical fall. 2. Acute on chronic right subdural hematoma. 3. History of frequent falls. 4. History of orthostatic hypotension. 5. History of peripheral neuropathy. 6. History of coronary artery disease. 7. History of hypothyroidism. 8. History of hypertension. 9. History of diabetes. 10. History of bipolar disorder. 11. History of cerebellar cerebrovascular accident. PLAN: Admit to Trauma Services. Neurosurgery recommends q.1 hour neuro checks in ICU overnight. Repeat head CT in a.m. Elevate head of bed greater than 30 degrees. Systolic blood pressure less than 150. Careful pain control with NSAIDs. Recommend PT and OT. Plan for admission was discussed with the patient and family at bedside and all questions were answered at the time of this dictation. Trauma attending has been notified of admission. Job ID: [id number]
[2018-05-19] MEDS: Polyethylene Glycol 3350 17 GM Packet PO SCH (08:37)
[2018-05-19] MEDS: Senokot S 8.6-50 MG TAB PO SCH ×2 (08:37→21:08)
--- NOTE | 2018-05-19 09:14 | CT ---
PRELIMINARY REPORT/[facility]/EMERGENTY AFTER-HOURS PROCEDURE CT Head Without Intravenous Contrast EXAM DATE/TIME: 05/19/2018 3:11 AM CLINICAL HISTORY: 67 years old, male; Known subdural hematoma, F/u right SDH TECHNIQUE: Axial computed tomography images of the head/brain without intravenous contrast. COMPARISON: CT Brain WO Con 04/04/2018 5:04 AM FINDINGS: Brain: Evfiq-mp-ypfxdetr or xbapq-md-frv right frontoparietal subdural hematoma with greatest transve rse thickness of 14 mm. Mild diffuse cerebral atrophy. Midline shift: Midline shift cnzat-ga-uesa of 4-5 mm. Ventricles: Prominent ventricles in this patient with mild diffuse cerebral atrophy. Bones/joints: Old right-sided haley holes. No fracture. Sinuses: Normal as visualized. No acute sinusitis. Mastoid air cells: Normal as visualized. No mastoid effusion. Soft tissues: Posterolateral left scalp vertex soft tissue swelling. IMPRESSION: 1. Cyojg-jz-pbgvahks or kqjbd-uv-xpg right frontoparietal subdural hematoma with greatest transverse thickness of 14 mm. 2. Midline shift gdzst-cj-ehsu of 4-5 mm. 3. Posterolateral left scalp vertex soft tissue swelling. 4. No fracture. Examination results of the patient were discussed with Liz Arshad RN on 05/19/2018 at 3:39 AM INTEGRATED PROGRAM TEACHER. Initial Report created on 05/19/2018 3:37 AM Central Time ([place] & [place]) Dictated and Authenticated by: Haresh Roper MD 05/19/2018 3:37 AM Central Time ([place] & [place]) FINAL REPORT CT OF BRAIN PERFORMED WITHOUT CONTRAST ENHANCEMENT: History: Follow up of right subdural hematoma. Comparison: 05-18-18 FINDINGS: There is some mild ventricular and sulcal prominence. An acute on chronic subdural hematoma over the right frontal convexity is noted. There appears to be some slight increase in the acute subdural bloo d seen more posteriorly along the right frontal parietal convexity with very minimal increase in size of the subdural hematoma in this area. No change in shift of midline structures as compared to the p rior study. No intraparenchymal hemorrhage. Right frontal haley holes are noted. IMPRESSION: 1. Acute on chronic subdural hematoma over the right frontal convexity. Some slight increase in acute blood which was best demonstrated along the more posterior aspect of this subdural collection with v jarett minimal overall increase in size and no additional shift of midline structures. Short term follow up is recommended for assessment. 2. This report is in agreement with the temporary report issued by [facility]. They did not mann ve the benefit of comparison to the previous exam. Those changes are as noted. POS: ELVIE
[2018-05-19] MEDS ORDERED: Potassium Chloride 20 MEQ in Premix Bag 1 BAG IVPB SCH (09:30)
[2018-05-19] MEDS: hydrALAZINE 20 MG/ML VIAL SLOW IVP PRN (09:51)
--- NOTE | 2018-05-19 11:51 | CON ---
DATE OF CONSULTATION: 05/19/2018 HISTORY OF PRESENT ILLNESS: The patient is a 67-year-old male with a past medical history of cardiovascular disease with cardiac stents, known to the Neurosurgery Service for chronic subdural right-sided hematoma, drained with haley holes x2 on 04/03/[address] Briones, who presented to the emergency department tonight after a mechanical fall. The patient reports he was doing well and transitioned to home following the surgery until tonight when he suffered a mechanical fall after loosing his balance hitting the top and left side of his head. The patient denies any LOC, nausea, or vomiting. He was evaluated with CT head on arrival, which is notable for a new small right acute on chronic subdural hematoma. The patient denies any anticoagulant use. He has a GCS of 15. He has no other complaints at this time. PAST MEDICAL HISTORY: Coronary artery disease, bipolar disorder, history of chronic right subdural hematoma drained with haley holes x2 by Dr. Briones on 04/03/2018, diabetes, hypertension, hypothyroid, and GERD. PAST SURGICAL HISTORY: Cardiac stents and haley holes. SOCIAL HISTORY: The patient does not smoke, drink, or use any drugs. He is , lives at home. ALLERGIES: NO KNOWN DRUG ALLERGIES. CURRENT MEDICATIONS: 1. Metformin. 2. Victoza. 3. Lasix. 4. Carvedilol. 5. Levothyroxine. 6. Wellbutrin. 7. Cymbalta. 8. Ranitidine. 10. Crestor. 11. Nitroglycerin. 12. Potassium chloride. 13. Amlodipine-benazepril. REVIEW OF SYSTEMS: Per HPI. PHYSICAL EXAMINATION: VITAL SIGNS: Blood pressure is 163/85, pulse 71, respirations 18, the patient is 97% on room air, and temperature is 98.1. CONSTITUTIONAL: GCS of 15. A and O x4. No acute distress. HEENT: Head, he has small abrasions over the left posterior scalp. Eyes, PERRLA. Extraocular movements intact. ENT, oral mucosa is pink, intact, and moist. He has normal voice. NECK: Nontender to palpation. Active range of motion. No meningismus. No nuchal rigidity. CARDIOVASCULAR: Regular rate and rhythm. RESPIRATORY: He is breathing comfortably, symmetric chest expansion. MUSCULOSKELETAL: He has fair active range of motion of all extremities. No focal motor weakness. No reflex asymmetry. NEUROLOGIC: A and O x4. GCS of 15. No focal neurologic deficits are appreciated. ASSESSMENT AND PLAN: This is a 67-year-old male, known to the Neurosurgical Service for recent haley hole evacuation of chronic right-sided subdural hematoma, who presented tonight for mechanical fall, was found to have a small amount of new acute subdural blood on the right side. There is no mass effect or midline shift. The patient has a GCS of 15, is neurologically intact. We discussed this case with the Trauma Service and they will admit him to the ICU for closed monitoring, q.1 neuro checks overnight. We will plan to repeat his a.m. head CT. Head of bed should be elevated at 30 degrees. His systolic blood pressure should be kept below 150. I discussed this plan with Dr. Senior, who is in agreement. Please reach Neurosurgery for additional questions or concerns. Job ID: [id number] MTDD
[2018-05-19] MEDS ORDERED: Furosemide 20 MG TAB PO PRN (13:39)
[2018-05-19] MEDS ORDERED: Carvedilol 3.125 MG TAB PO SCH (17:00)
[2018-05-19] MEDS: Carvedilol 25 MG TAB PO SCH (17:45)
[2018-05-19] MEDS ORDERED: Rosuvastatin 10 MG TAB PO SCH (21:00)
[2018-05-19] MEDS: Bupropion 150 MG XL TAB PO SCH (21:08)
--- NOTE | 2018-05-19 22:26 | PRG ---
DATE OF SERVICE: 05/19/2018 SUBJECTIVE: I saw Mr. Szymanski earlier this morning. The patient was admitted after midnight with acute on chronic subdural hematoma following a fall. At the time of my evaluation, Radha Coma Scale is 15. The patient is moving all extremities and answering questions appropriately. I reviewed the CT scan of the brain and noted the stable acute on chronic right subdural hematoma. OBJECTIVE: VITAL SIGNS: Include blood pressure 149/86, pulse 66, respiratory rate is 15, and oxygen saturation 97% on room air. HEART: Reveals regular rate and rhythm. LUNGS: Clear to auscultation bilaterally. Breathing regular and unlabored. ABDOMEN: Soft, nontender, nondistended. NEUROLOGIC: Reveals no focal deficits present. PLAN: 1. We will initiate physical and occupational therapy. 2. CT scan of the brain will be repeated in the morning and the patient will be discharged if the radiographic studies and neurologic examination remain stable. Job ID: [id number]
[2018-05-20] MEDS: hydrALAZINE 20 MG/ML VIAL SLOW IVP PRN (00:12)
[2018-05-20] MEDS: Acetaminophen 500 MG TAB PO SCH ×2 (00:17→01:49)
[2018-05-20] MEDS ORDERED: Levothyroxine Sodium 112 MCG TAB PO SCH (06:00)
[2018-05-20] MEDS ORDERED: Acetaminophen 500 MG TAB PO SCH (08:00)
[2018-05-20] MEDS ORDERED: metFORMIN 500 MG TAB PO SCH (08:00)
[2018-05-20] MEDS ORDERED: lamoTRIgine 100 MG TAB PO SCH (09:00)
[2018-05-20] MEDS ORDERED: DULoxetine 60 MG CAP PO SCH (09:00)
[2018-05-20] MEDS ORDERED: Fludrocortisone Acetate 0.1 MG TAB PO SCH (09:00)
[2018-05-20] MEDS ORDERED: Potassium Chloride 10 MEQ TAB PO SCH (09:00)
[2018-05-20] MEDS ORDERED: LIRAGLUTIDE 1.8 MG SC SCH (09:00)
[2018-05-20] MEDS: Carvedilol 25 MG TAB PO SCH (09:03)
[2018-05-20] MEDS: Polyethylene Glycol 3350 17 GM Packet PO SCH (09:03)
[2018-05-20] MEDS: Senokot S 8.6-50 MG TAB PO SCH (09:04)
[2018-05-20] MEDS: Bupropion 150 MG XL TAB PO SCH (09:04)
[2018-05-20 11:14] VITALS: BP 154/77; TEMP 98
--- NOTE | 2018-05-20 15:24 | PRG ---
DATE OF SERVICE: 05/20/2018 SUBJECTIVE: The patient was seen and examined. I agree with Kristen Pimentel's evaluation. The patient is a 67-year-old man, status post haley hole evacuation of chronic subdural hematoma, who was admitted after a mechanical fall. CT scan shows a tiny amount of acute subdural blood on top of chronic subdural fluid. The degree of mass effect is modest and he is clinically intact. Repeat CT scan is satisfactory. I recommend discharge and I have no additional treatment plans. He already has a followup scheduled with Dr. Briones in 4 weeks and he will keep this. Job ID: [id number]
--- NOTE | 2018-05-21 11:21 | DIS ---
DATE OF ADMISSION: 05/18/2018 DATE OF DISCHARGE: 05/20/2018 RESIDENT: Philip Mistry MD. ADMITTING ATTENDING: Kirk Quispe MD. DISCHARGE ATTENDING: Jose Roberto Calix MD CONSULTS: Neurosurgery. PROCEDURE: On 05/19/2018, brain CT. IMPRESSION: Acute on chronic subdural hematoma over the right frontal convexity, some slight increase in acute blood which was best demonstrated along the more posterior aspect of the subdural collection with minimal overall increase in size and no additional shift of midline structures. Short-term followup is recommended for assessment. This report is in agreement with temporary report issued by [facility]. PRIMARY DIAGNOSIS: Acute on chronic right subdural hematoma. SECONDARY DIAGNOSES: 1. Frequent falls. 2. Chronic subdural hematoma, status post haley hole evacuation. 3. Coronary artery disease. 4. Hypothyroidism. 5. Hypertension. 6. Diabetes. 7. Bipolar disorder. 8. Orthostatic hypertension. DISCHARGE MEDICATIONS: 1. Furosemide 40 mg p.o. daily p.r.n. 2. Fludrocortisone acetate 0.1 mg p.o. daily. 3. Ranitidine 75 mg p.o. b.i.d. 4. Nitroglycerin 0.4 mg sublingual q.5 minutes p.r.n. 5. Metformin 1000 mg p.o. b.i.d. 6. Rosuvastatin 10 mg p.o. at bedtime. 7. Victoza 1.8 mg subcutaneous daily. 8. Potassium chloride 10 mEq p.o. daily. 9. Duloxetine 60 mg p.o. daily. 10. Bupropion one tablet p.o. b.i.d. 150 mg. 11. Levothyroxine sodium 112 mcg p.o. daily. 12. Carvedilol 25 mg p.o. b.i.d. 13. Lamotrigine 200 mg p.o. daily. 14. Acetaminophen 1000 mg p.o. q.8 hours p.r.n. DISCONTINUED MEDICATIONS: None. HISTORY OF PRESENT ILLNESS AND HOSPITAL COURSE: This is a 67-year-old gentleman with history of chronic subdural hematoma, status post haley hole surgery, who presented to the ER after a mechanical fall. The patient has history of frequent falls and had no loss of consciousness on fall. Brain CT on admission showed small acute on chronic subdural hematoma. Though the patient was showing no neurologic deficit, the patient was admitted with serial neurological exams, and after one day showing no changes, the patient was deemed safe for discharge with close outpatient followup. All other medical problems were managed with home medications as listed above. DISPOSITION: Stable. DISCHARGE INSTRUCTIONS: Location: Home. Diet: No restrictions. Activity: As tolerated. FOLLOWUP: 1. With Dr. Senior in 7 days. 2. With primary care physician, Dr. Rekha Guthrie, in [address] Uri Holloway in 3 to 4 weeks. Job ID: [id number]
== END 2018-05-20 13:52 | disposition home or self-care (01) | DRG 87 ==
LOC: ERS 22:07 → CCU 22:45 → SJJU 05-19 14:45
PROVIDERS: ADMIT Specialist; ATTEND Specialist
DX: S06.5X0A Traumatic subdural hemorrhage without loss of consciousness, initial encounter (principal); W19.XXXA Unspecified fall, initial encounter; E11.42 Type 2 diabetes mellitus with diabetic polyneuropathy; I25.10 Atherosclerotic heart disease of native coronary artery without angina pectoris; I10 Essential (primary) hypertension; F31.9 Bipolar disorder, unspecified; Z86.73 Personal history of transient ischemic attack (TIA), and cerebral infarction without residual deficits
CPT/HCPCS: 36415; 36416; 70450; 82553; 83735; 84100; 84484; 99285; G0390; G8978-GP-CJ; G8979-GP-CI; G8987-GO-CI; G8988-GO-CI; G8989-GO-CI; J0360; J3480; Q0162

== ENCOUNTER 2018-06-19 12:52 | Inpatient (IN) | payer MEDICARE ==
[2018-06-19 14:13] LABS: #Basophils 0.1 thou/uL (0.0-0.2); #Eosinphils 0.4 thou/uL (0.0-0.7); #Lymphocytes 2.2 thou/uL (1.20-3.40); #Monocytes 0.7 thou/uL (0.11-0.59); #Neutrophils 5.9 thou/uL (1.40-6.50); %Basophils 0.9 % (0.0-1.0); %Eosinophils 4.3 % (0.0-10.0); %Lymphocytes 23.6 % (21.0-51.0); %Monocytes 7.8 % (0.0-10.0); %Neutrophils 63.4 % (42.0-75.0); Hemoglobin 14.3 g/dL (14.0-18.0); Mean Corpuscular HGB CONC 33.2 g/dL (32.0-36.0); Mean Corpuscular Hemoglobin 28.9 pg (27.0-31.0); Mean Corpuscular Volume 87.1 fL (78.0-98.0); Mean Platelet Volume 7.7 fL (7.4-10.4); Platelet Count 234 thou/uL (130-400); RBC Distribution Width 13.6 % (11.5-14.5); Red Blood Cell (RBC) Count 4.96 mill/uL (4.70-6.10); White Blood Cell (WBC) Count 9.3 thou/uL (4.8-10.8)
[2018-06-19 14:19] LABS: PTT 31.4 SEC (22.9-36.1)
[2018-06-19 14:23] LABS: Bilirubin Negative (Negative); Blood, Urine Negative (Negative); Clarity CLEAR (Clear); Glucose, Urine (Dipstick) Negative (Negative); Leukocyte Negative (Negative); Nitrite Negative (Negative); Protein, Urine (Dipstick) 100 mg/dL (Neg-Trace); Specific Gravity, Urine 1.014 (1.002-1.036)
[2018-06-19 14:24] LABS: Bacteria/HPF None Seen HPF (None Seen); Hyaline Casts/LPF 4-6 HYALINE CAST LPF (0-3 Hyaline); Pathc Cast-AUWi Flag 0.58 (0-2.49); Squamous Epithelial 0-3 HPF (0-3)
[2018-06-19 14:40] LABS: ALT (SGPT) 8 U/L (8-55); AST (SGOT) 14 U/L (5-34); Albumin 4.2 g/dL (3.4-4.8); Alkaline Phosphatase 64 U/L (40-150); Anion Gap 15 mmol/L (10-20); BUN (Urea Nitrogen) 12 mg/dL (8.4-25.7); Bilirubin, Total 0.4 mg/dL (0.2-1.2); Calc. Creatinine Clearance 0 mL/min (70-130); Calcium 8.8 mg/dL (7.8-10.44); Carbon Dioxide 27 mmol/L (23-31); Chloride 101 mmol/L (98-107); Estimated GFR-MDRD 65; Glucose 147 mg/dL (80-115); Potassium 3.1 mmol/L (3.5-5.1); Protein, Total 7.2 g/dL (5.8-8.1); Sodium 140 mmol/L (136-145)
--- NOTE | 2018-06-19 15:43 | CT ---
CT HEAD NONCONTRAST: 05/23/18 HISTORY: Fall, head injury, subdural hematoma. COMPARISON: 05/19/18. FINDINGS: A large heterogeneous mixed density right subdural fluid collection has enlarged significantly since the previous exam. It contains components of hyperdense fluid and measures up to 2.1 cm thickness. Fr ontal calvarial bur holes are noted. There is effacement of the right cerebral sulci and lateral ventricle. Minimal leftward deviation of the septum pellucidum. Old right cerebellar infarct is stable. IMPRESSION: Acute upon chronic enlarging right subdural hematoma. Please consider neurosurgical evaluation. Findings were called to Dr. Alarcon in the Emergency Department at 1345 hours. Code CR POS: [id number]
--- NOTE | 2018-06-19 15:48 | RAD ---
PORTABLE AP CHEST X-RAY 06/19/18 HISTORY: Preoperative evaluation. COMPARISON: None available. FINDINGS: The cardiac silhouette is magnified by projection but does appear mildly enlarged. The pulmonary vas culature is within normal limits. The lungs are clear. There is mild elevation of the right hemidiaph ragm. Remote left sided rib fractures are present. IMPRESSION: No acute cardiopulmonary process. POS: H
[2018-06-19] MEDS ORDERED: Dextrose 5% in Water 1,000 ML IV PRN (16:34)
[2018-06-19] MEDS ORDERED: Ondansetron PF 4 MG/2 ML Vial IVP PRN (16:34)
[2018-06-19] MEDS ORDERED: Ondansetron ODT 4 MG TAB PO PRN (16:34)
[2018-06-19] MEDS ORDERED: traMADol HCl 50 MG TAB PO PRN (16:34)
[2018-06-19] MEDS ORDERED: Dextrose 50% Abboject 50 ML SYRINGE SLOW IVP PRN (16:34)
[2018-06-19 16:44] VITALS: BMI 32.8
[2018-06-19] MEDS ORDERED: Acetaminophen 1,000 MG in Premix Bag 1 BAG IVPB SCH (16:45)
[2018-06-19] MEDS ORDERED: Furosemide 40 MG TAB PO PRN (18:37)
[2018-06-19] MEDS ORDERED: Nitroglycerin 0.4 MG TAB (25 Tab Bottle) SL PRN (18:37)
--- NOTE | 2018-06-19 19:21 | HP ---
REQUESTING PHYSICIAN: Dr. Alarcon. CONSULTATIONS: Neurosurgery, Dr. Senior. HISTORY OF PRESENT ILLNESS: The patient is a 68-year-old man, who reportedly had a fall at home. The patient has a history of repeated falls in March and required haley holes for subdural hematoma. The patient tonight presented to the ER after a fall, was noted to have acute on chronic subdural hematoma and we were asked by Neurosurgery to admit the patient for serial exams and repeat head CT in the morning. The patient currently is not on any blood thinners. Denies loss of consciousness, though does have an occasional headache. The patient also denies nausea or vomiting. ALLERGIES: NONE. CURRENT MEDICATIONS: 1. Metformin. 2. Victoza. 3. Lasix. 4. Carvedilol. 5. Levothyroxine. 6. Wellbutrin. 7. Cymbalta. 8. Ranitidine. 9. Lamotrigine. 10. Crestor. 11. Sublingual nitroglycerin. 12. Fludrocortisone. 13. Potassium. 14. Amlodipine-benazepril. PAST MEDICAL HISTORY: Coronary artery disease, diabetes, gastroesophageal reflux disease, hypothyroidism, diabetic peripheral neuropathy, subdural hematoma, bipolar disorder. SURGICAL HISTORY: Heart stent x2, haley holes x2. SOCIAL HISTORY: The patient lives at home with family. Denies drug use. Occasional alcohol use and no tobacco history. FAMILY MEDICAL HISTORY: Hypertension, diabetes. REVIEW OF SYSTEMS: A 10-point review of systems is negative except otherwise stated. PHYSICAL EXAMINATION: VITAL SIGNS: Blood pressure 114/78, heart rate 78, respirations 18, oxygen saturation is 96% on room air, temperature is 97.9. GENERAL: The patient is resting comfortably in bed. He is awake, alert, and oriented x3. Radha Coma Scale is 15. HEENT: Head is normocephalic and atraumatic. Eyes, extraocular motion intact. PERRLA bilaterally. Ears are atraumatic without discharge. Nose is atraumatic without discharge. Oropharynx is clear. NECK: Nontender. Trachea is midline. There is no JVD. CHEST: Clear to auscultation with good inspiratory and expiratory effort. HEART: Regular rate and rhythm. ABDOMEN: Soft, flat, nontender with active bowel sounds. PELVIS: Stable. EXTREMITIES: Show some healing contusions, otherwise atraumatic, neurovascularly intact x4. Capillary refill is less than 3 seconds. BACK: Nontender and atraumatic. LABORATORY RESULTS: WBCs 9.3, hemoglobin 14.3, hematocrit 43.3, platelets 234. Sodium 140, potassium 3.1, chloride 101, CO2 of 27, BUN 12, creatinine 1.11, glucose 147. LFTs are unremarkable. Urinalysis shows 4 to 6 wbc's. No nitrite, LE, or bacteria. BNP 118. Troponin 0.017. PTT 31, PT 13, INR 1.0. IMAGING STUDIES: CT of the head without contrast shows an acute upon chronic enlarging right subdural hematoma. ASSESSMENT: 1. Status post fall. 2. Acute on chronic subdural hematoma. 3. History of repeated falls. PLAN: Plan will be to admit the patient to the critical care unit for frequent neuro exams per Neurosurgery. The patient also have head of bed up. Repeat head CT in the morning. The patient will be able to have a diet tonight as they do not foresee surgical intervention needed at this time. Evaluation and examination were done with Dr. Marshall in the emergency department. Job ID: [id number]
[2018-06-19] MEDS: Acetaminophen 325 MG TAB PO SCH (19:40)
[2018-06-19] MEDS: Famotidine 20 MG TAB PO SCH (19:40)
[2018-06-19] MEDS: Bupropion 150 MG XL TAB PO SCH (19:40)
[2018-06-19] MEDS: Rosuvastatin 10 MG TAB PO SCH (19:40)
--- NOTE | 2018-06-19 21:08 | CON ---
DATE OF CONSULTATION: ATTENDING PHYSICIAN: Dr. Steve Senior. HISTORY OF PRESENT ILLNESS: The patient is a 68-year-old male with a past medical history of hypertension, coronary artery disease, diabetes, hypothyroid, prior CVA with chronic subdural hematoma, treated with haley hole drainage by Dr. Briones on 04/03/2018, who returned to the emergency department today after a mechanical fall. Following his original haley hole drainage, the patient reports he was doing well until he had a mechanical fall at home 1 month ago and was readmitted on 05/19/2018 for acute on chronic right subdural hematoma. This was evaluated with repeat a.m. CT head the following day, which was stable and the patient was discharged home shortly after. The patient reports he has continued to be intermittently unsteady on his feet and had 3 falls earlier today. The 1st event, he is unable to remember the cause. The 2nd two events, he reported he got his feet caught below him causing fall and hit his head. Denies any LOC, particularly headache, vision changes, nausea, vomiting, or other associated symptoms. Considering his history of subdural hematoma, family brought him to the ER for repeat evaluation. New CT head was done on arrival which shows worsening of acute on chronic right subdural hematoma. There is a small amount of midline shift. The patient has a GCS of 15. He is, otherwise, neurologically intact. At baseline, he remains off any anticoagulants. PAST MEDICAL HISTORY: Hypertension, hyperlipidemia, coronary artery disease with prior MA, history of acute CVA, diabetic neuropathy, hypothyroidism, type 2 diabetes. PAST SURGICAL HISTORY: Cardiac stents, haley hole drainage of chronic subdural hematoma x2 by Dr. Briones on 04/03/2018. SOCIAL HISTORY: The patient drinks socially. He denies any drugs. Lives at home with his family. ALLERGIES: HE HAS NO KNOWN DRUG ALLERGIES. REVIEW OF SYSTEMS: Per HPI. PHYSICAL EXAMINATION: VITAL SIGNS: BP is 111/78, pulse 74, respiration rate is 18, temperature is 98.0, oxygen saturation is 96% on room air. CONSTITUTIONAL: Awake, alert, in no acute distress. GCS 15. HEENT: Head is normocephalic, atraumatic. No obvious hematoma or abrasions. Eyes; PERRLA. Extraocular movements intact. NECK: Nontender to palpation. Active range of motion. No meningismus or nuchal rigidity. CARDIAC: Regular rhythm. RESPIRATORY: Symmetric chest expansion. Clear to auscultation. MUSCULOSKELETAL: Free active range of motion of all extremities. No focal motor weakness. No reflex asymmetry. NEUROLOGIC: GCS 15. A and O x4. No focal neurologic deficits are appreciated. ASSESSMENT AND PLAN: This is a 68-year-old male with chronic right-sided subdural hematoma, status post haley hole drainage by Dr. Briones on 04/03/2018, who returns today for acute on chronic worsening right-sided subdural hematoma after a mechanical fall earlier today. We will plan to monitor the patient closely in the CCU with serial neuro checks tonight. The patient's head of bed should be elevated to 30 degrees and systolic blood pressure should be kept below 150. The patient remains off anticoagulants and we shall continue to keep him off these medications. Trauma Service has also been notified and is assisting in facilitation of this admission. I have ordered repeat a.m. CT. Dr. Senior will also meet with family in the morning to discuss the repeat a.m. CT and persistent subdural hematoma at that time. Job ID: [id number] [facility]
[2018-06-20] MEDS: Acetaminophen 325 MG TAB PO SCH ×6 (00:17→21:39)
[2018-06-20 06:00] LABS: #Basophils 0.1 thou/uL (0.0-0.2); #Eosinphils 0.4 thou/uL (0.0-0.7); #Lymphocytes 2.8 thou/uL (1.20-3.40); #Monocytes 0.8 thou/uL (0.11-0.59); #Neutrophils 3.3 thou/uL (1.40-6.50); %Basophils 1.1 % (0.0-1.0); %Eosinophils 4.8 % (0.0-10.0); %Lymphocytes 38.7 % (21.0-51.0); %Monocytes 10.9 % (0.0-10.0); %Neutrophils 44.6 % (42.0-75.0); Hemoglobin 13.6 g/dL (14.0-18.0); Mean Corpuscular HGB CONC 32.9 g/dL (32.0-36.0); Mean Corpuscular Hemoglobin 28.8 pg (27.0-31.0); Mean Corpuscular Volume 87.5 fL (78.0-98.0); Mean Platelet Volume 8.3 fL (7.4-10.4); Platelet Count 244 thou/uL (130-400); RBC Distribution Width 13.5 % (11.5-14.5); Red Blood Cell (RBC) Count 4.73 mill/uL (4.70-6.10); White Blood Cell (WBC) Count 7.3 thou/uL (4.8-10.8)
[2018-06-20 06:14] LABS: Anion Gap 14 mmol/L (10-20); BUN (Urea Nitrogen) 12 mg/dL (8.4-25.7); Calc. Creatinine Clearance 111 mL/min (70-130); Calcium 9.1 mg/dL (7.8-10.44); Carbon Dioxide 28 mmol/L (23-31); Chloride 103 mmol/L (98-107); Estimated GFR-MDRD 79; Glucose 104 mg/dL (80-115); Potassium 3.2 mmol/L (3.5-5.1); Sodium 142 mmol/L (136-145)
[2018-06-20] MEDS: Levothyroxine Sodium 112 MCG TAB PO SCH (06:15)
[2018-06-20] MEDS: Carvedilol 3.125 MG TAB PO SCH ×2 (07:08→17:15)
[2018-06-20] MEDS: Famotidine 20 MG TAB PO SCH ×2 (08:22→21:39)
[2018-06-20] MEDS: Bupropion 150 MG XL TAB PO SCH ×2 (08:22→21:38)
[2018-06-20] MEDS: DULoxetine 60 MG CAP PO SCH (08:22)
[2018-06-20] MEDS: Potassium Chloride 10 MEQ TAB PO SCH (08:23)
[2018-06-20] MEDS: Fludrocortisone Acetate 0.1 MG TAB PO SCH (08:28)
[2018-06-20] MEDS: lamoTRIgine 100 MG TAB PO SCH (08:28)
[2018-06-20] MEDS ORDERED: (Liraglutide [Victoza 2-Pak] 1.8 MG) SC SCH (09:00)
--- NOTE | 2018-06-20 10:03 | CT ---
PRELIMINARY REPORT/[facility]/EMERGENTY AFTER-HOURS PROCEDURE CT Head Without Contrast EXAM DATE/TIME: 06/20/2018 4:17 AM CLINICAL HISTORY: 68 years old, male; Condition or disease; Other: Sdh; Patient HX: F/u acute on chronic sdh TECHNIQUE: Axial computed tomography images of the head/brain without contrast. COMPARISON: CT Brain WO Con 06/19/2018 1:42 PM FINDINGS: Brain: Essentially stable size and appearance of the mixed attenuation right subdural hematoma. Stabl e mass effect and [id number] midline shift, measuring about 4 mm. No definite new hemorrhage in th e interval. No definite acute infarct by CT. Ventricles: Ventricle size is normal for age. Bones/joints: No definite acute skull fracture. Sinuses: 15 mm retention cyst or polyp in the right sinus. Included paranasal sinuses otherwise appea r essentially clear. Mastoid air cells: No significant acute finding. IMPRESSION: 1. Essentially stable size and appearance of the mixed attenuation right subdural hematoma. 2. Stable mass effect and [id number]-gm-[id number] midline shift, measuring about 4 mm. 3. No definite new hemorrhage in the interval. 4. Other findings discussed above. Thank you for allowing us to participate in the care of your patient. Dictated and Authenticated by: Zuhair Lazo MD 06/20/2018 4:48 AM Central Time ([place] & [place]) FINAL REPORT EMERGENT AFTER HOURS NONCONTRAST CT HEAD: DATE: 06/20/2018. HISTORY: Acute on chronic subdural hemorrhage. Followup evaluation. COMPARISON: 06/19/2018. IMPRESSION: 1. Stable appearance of mixed-attenuation right subdural hematoma with greatest transverse dimension of approximately 2.2 cm seen superiorly. Stable haley holes are present within the right calvarium. 2. Stable sulcal effacement and mass effect involving the right cerebral hemisphere. There is appro ximately 3-4 mm of midline shift to the left. 3. Stable low attenuation area in the right cerebellar hemisphere likely related to remote infarctio n. 4. The remainder of the CT Head is stable from prior exam. 5. Findings are in agreement with the preliminary report by [facility]. POS: [facility]
[2018-06-20] MEDS ORDERED: CEFAZOLIN 2 GM/50 ML BAG IVPB SCH (10:15)
--- NOTE | 2018-06-20 10:24 | PRG ---
PULMONARY CONSULTATION NOTE DATE OF SERVICE: 06/20/2018 SERVICE: Pulmonary Medicine. REASON FOR CONSULT: ICU patient. HISTORY OF PRESENT ILLNESS: The patient is a 68-year-old white male with past medical history significant for a cerebellar lesion. He falls frequently. As a result, he recently had a couple of falls. Ultimately, he had increasing instability on his legs, worse than usual. He needed significant assistance from his son to help him walk. As such, he came to the emergency department. A CT of the head confirmed that he had an expansion of a known chronic subdural hematoma. He was tucked in the ICU for close ICU monitoring. He feels foggy in the head and has a difficult time characterizing the weird discomfort that he appreciates. That being said, he is not having nausea, vomiting, diarrhea, fevers, chills, shortness of breath or chest discomfort. He has a weird movement, which is chronic for him. PAST MEDICAL HISTORY: 1. Coronary artery disease. 2. Diabetes mellitus. 3. Hypertension. 4. Dyslipidemia. 5. Gastroesophageal reflux disease. 6. Peripheral neuropathy. 7. Subdural hematoma, chronic. 8. Bipolar disorder. PAST SURGICAL HISTORY: 1. PCI x2. 2. Flora holes, two previous events. SOCIAL HISTORY: Negative for alcohol, tobacco, or illicit drug use. He has no exposure to chemicals, dust, asbestos, or tuberculosis. FAMILY HISTORY: Noncontributory. ALLERGIES: NO KNOWN DRUG ALLERGIES. MEDICATIONS: List of his inpatient medications was reviewed. No specific updates were made at this time. REVIEW OF SYSTEMS: General, head, ears, eyes, nose, throat, cardiovascular, respiratory, GI, , musculoskeletal, neurologic, and skin are negative except as mentioned is the HPI. PHYSICAL EXAMINATION: VITAL SIGNS: Afebrile. Pulse 66, blood pressure 169/101, respirations 16, and saturation 94% on room air. GENERAL: The patient is awake and alert, in no apparent distress. LUNGS: Excellent air entry. No prolonged expiratory phase, wheezing, rhonchi, or crackles are present. HEART: Normal rate, regular. ABDOMEN: Soft, nontender, and nondistended. Bowel sounds are positive. MUSCULOSKELETAL: No cyanosis or clubbing. There is no pitting in the bilateral lower extremities. NEUROLOGIC: He demonstrates symmetric strength in upper and lower extremities. Sensation is intact. Rapidly alternating movements, and msswkk-jb-krtv are altered. LABORATORY DATA: WBC 7.3, hemoglobin 13.6, platelets 244,000 and stable. INR 1.0. Basic metabolic profile is essentially unremarkable, except for potassium of 3.2. BNP 118, troponin 0.017. Liver function studies are unremarkable. Urinalysis is unremarkable. IMAGING: CT of the brain demonstrates acute on chronic enlarging right subdural hematoma. Repeat CT of the head demonstrates interval enlargement of the subdural hematoma , 4 mm middle midline shift is now evident. ASSESSMENT: 1. Subdural hematoma, acute on chronic. 2. Hypokalemia. 3. Type 2 diabetes mellitus. 4. History of stroke with frequent falls. DISCUSSION AND PLAN: The patient is doing fine from respiratory standpoint. At this point, neurologically, he is stable. That being said, the hematoma is enlarging. As such, I would like for him to stay in the ICU for at least an additional 24 hours. Neurosurgery has been made aware of the interval change on the CT of the head. Potassium will be replaced. Pulmonary will continue to follow. 70 minutes have been devoted to this patient in various activities. I personally reviewed all imaging studies and laboratory data noted within this document. For fifty percent of this time, I was interacting with the patient at the bedside or coordinating care with the care team. For the remainder of the time I was immediately available to the patient in the hospital unit. Job ID: [id number] [facility]
[2018-06-20] MEDS ORDERED: Potassium Chloride 20 MEQ TAB PO SCH (10:30)
--- NOTE | 2018-06-20 12:08 | PRG ---
DATE OF SERVICE: 06/20/2018 SUBJECTIVE: The patient was seen and examined. I agree with Kristen Pimentel's evaluation on 06/19/2018. The patient is a 68-year-old male with a known right chronic subdural hematoma, that have been evacuated [address] Briones and then readmitted with enlargement and was treated conservatively. He has had multiple falls over the past month, which were fairly violent and a new CT scan does show some increase in the subdural hematoma. 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 IMPRESSION AND PLAN: I do recommend a repeat haley hole evacuation, and I discussed the indication, risks, benefits, and alternatives of this procedure with the patient and his , who agreed to proceed. We will also get an MRI of the cervical spine for further diagnostic evaluation of his repeated falls. We will need to hold off on antiplatelet therapy and anticoagulants indefinitely. Job ID: [id number]
--- NOTE | 2018-06-20 14:15 | MRI ---
MRI CERVICAL SPINE NONCONTRAST: HISTORY: Fall. Neck pain. FINDINGS: Vertebral body heights and alignment are maintained. T2 signal at the C5-6-7 levels has the appearan ce of discogenic end plate changes. There is desiccation of all of the intervertebral disks and disk space narrowing. C2-3: Minimal degenerative spondylolisthesis. Degenerative changes with moderate bilateral neural f oraminal stenosis. C3-4: Prominent osteophyte/disk complete. Moderate stenosis of the central canal. Moderate bilater al foraminal stenoses. C4-5: Circumference degenerative changes with moderate stenosis of the central canal and severe sten osis of each neural foramen. C5-6: Posterior osteophyte/disk complex greater to the right of midline. Severe central canal steno sis. Severe bilateral foraminal stenoses. C6-7: Circumferential degenerative changes with moderate stenosis of the central canal. Severe righ t and moderate left foraminal stenosis C7-T1: Minimal degenerative spondylolisthesis. Central canal and neural foramen are patent. IMPRESSION: Prominent multilevel degenerative changes throughout the surgical spine, with severe central canal an d foraminal stenoses as detailed above. POS: [facility]
--- NOTE | 2018-06-20 15:19 | PRG ---
DATE OF SERVICE: 06/20/2018 SUBJECTIVE: The patient is hospital day 2. He remains on the Critical Care floor. His repeat CT this morning showed slightly enlarged subdural hematoma, and per discussion with Neurosurgery, he will undergo haley holes tomorrow. The patient states that he is feeling fine and his pain is being controlled. He is tolerating a clear liquid diet due to his change in his CT, it is felt that he would best be kept on a clear liquid diet for today. The patient had no issues overnight. OBJECTIVE: VITAL SIGNS: Temperature is 98.4, heart rate 68, blood pressure 167/89, respirations 18, and oxygen saturation is 96% on room air. GENERAL: The patient is resting comfortably in bed. He is awake, alert, and oriented x3. Radha Coma Scale is 15. It is noted today that the patient has involuntary movement of his extremities, upper greater than lower extremities. He states that this is not uncommon for him and his confirms that this is normal and likely add to his instability and repetitive falls. HEENT: Unremarkable. LUNGS: Clear to auscultation with good inspiratory and expiratory effort. HEART: Regular rate and rhythm. ABDOMEN: Soft, flat, nontender with active bowel sounds. EXTREMITIES: Neurovascularly intact x4. LABORATORY DATA: White blood cell count 7.3, hemoglobin 13.6, hematocrit 41.4, platelets 244. Sodium 142, potassium 3.2, chloride 103, CO2 of 28, BUN 12, creatinine 0.94, glucose 104. IMAGING STUDIES: Repeat CT this morning again shows acute on chronic right-sided subdural hematoma. ASSESSMENT: 1. Status post repetitive falls. 2. Acute on chronic subdural hematoma. PLAN: Plan will be to continue close monitoring on the Critical Care Unit with plans by Neurosurgery to take the patient to the OR tomorrow for haley holes. The patient will be made n.p.o. after midnight. We will continue nonnarcotic pain medications. The patient was evaluated again by Neurosurgery and Pulmonary Critical Care this morning. The case was discussed with attending. Job ID: [id number]
[2018-06-20] MEDS: traMADol HCl 50 MG TAB PO PRN (17:11)
[2018-06-20] MEDS: Insulin Regular 300 UNITS/3 ML VIAL SC PRN (17:53)
[2018-06-20] MEDS: Rosuvastatin 10 MG TAB PO SCH (21:38)
[2018-06-21] MEDS: Acetaminophen 325 MG TAB PO SCH ×6 (01:30→21:13)
[2018-06-21] MEDS: Levothyroxine Sodium 112 MCG TAB PO SCH (06:05)
[2018-06-21] MEDS: Carvedilol 3.125 MG TAB PO SCH ×3 (07:04→16:29)
[2018-06-21] MEDS: lamoTRIgine 100 MG TAB PO SCH (09:13)
[2018-06-21] MEDS: Bupropion 150 MG XL TAB PO SCH ×2 (09:13→21:13)
[2018-06-21] MEDS: Fludrocortisone Acetate 0.1 MG TAB PO SCH (09:13)
[2018-06-21] MEDS: Potassium Chloride 10 MEQ TAB PO SCH (09:13)
[2018-06-21] MEDS: DULoxetine 60 MG CAP PO SCH (09:13)
[2018-06-21] MEDS: Famotidine 20 MG TAB PO SCH ×3 (09:13→21:13)
[2018-06-21] MEDS ORDERED: Bacitracin Zinc Ointment 30 gm TUBE ONE (09:27)
[2018-06-21] MEDS ORDERED: Lidocaine 0.5%/Epinephrine 1:200,000 50 ml Vial ONE (09:44)
[2018-06-21] MEDS ORDERED: Fentanyl 100 MCG/2 ML VIAL ONE ×2 (11:16→11:37)
[2018-06-21] MEDS ORDERED: Promethazine HCl 25 MG/ML VIAL SLOW IVP PRN (12:33)
[2018-06-21] MEDS ORDERED: Promethazine HCl 25 MG/ML VIAL IM PRN (12:33)
[2018-06-21] MEDS ORDERED: Ondansetron HCl/PF 4 MG/2 ML Vial IVP PRN (12:33)
--- NOTE | 2018-06-21 13:07 | PRG ---
DATE OF SERVICE: 06/21/2018 SUBJECTIVE: The patient is currently on the critical care unit. He is awaiting his haley hole procedure today. He has been n.p.o. overnight. He is doing well. He is not having any pain. He denies any headache or dizziness. He is awaiting his procedure. The patient had no issues overnight. OBJECTIVE: VITAL SIGNS: Temperature 97.7, heart rate 62, blood pressure 158/98, respirations 16, oxygen saturation 95% on room air. GENERAL: The patient is resting comfortably in bed. He is awake, alert, and oriented x3. Radha coma scale is 15. HEENT: Unremarkable. LUNGS: Clear to auscultation with good inspiratory and expiratory effort. HEART: Regular rate and rhythm. ABDOMEN: Soft, flat, and nontender with active bowel sounds. PELVIS: Stable. EXTREMITIES: Neurovascularly intact x4. LABORATORY FINDINGS: There are no labs or radiographs to review this morning. ASSESSMENT: 1. Status post fall. 2. Xcshf-wr-synbpdl subdural hematoma. PLAN: Plan will be to await haley hole procedure, and per discussion with Neurosurgery, the patient will likely return to the critical care unit for at least 24 hours postprocedure. We will continue to follow and begin to mobilize the patient postoperatively as soon as cleared by Neurosurgery. Job ID: [id number]
[2018-06-21] MEDS: traMADol HCl 50 MG TAB PO PRN (16:30)
--- NOTE | 2018-06-21 16:32 | PRG ---
DATE OF SERVICE: SUBJECTIVE: I saw him after the OR today. He was taken there for haley holes. He is mentating well, has no complaints at the current time. OBJECTIVE: VITAL SIGNS: Temperature 98.3, pulse 75, blood pressure 143/87, O2 saturation 93%. HEENT: Unremarkable except for the haley holes in the right temporal region. NECK: No JVD. CHEST: Clear. CARDIAC: S1, S2, regular. ABDOMEN: Soft. EXTREMITIES: No edema. ASSESSMENT: Chronic subdural hematomas. PLAN: He has had haley holes redone, seems to be doing well. His respiratory status is stable. He will remain in the CCU as long as it is deemed appropriate from the neurosurgical perspective. Job ID: [id number]
[2018-06-21] MEDS: Insulin Regular 300 UNITS/3 ML VIAL SC PRN (16:37)
--- NOTE | 2018-06-21 16:43 | OP ---
DATE OF PROCEDURE: 06/21/2018 CORE ANALYST: Kristen Pimentel PA-C. PROCEDURE: Reopening right-sided haley hole for evacuation of subdural hematoma. DESCRIPTION OF PROCEDURE: The patient was brought to the operating room and anesthesia was instituted. The right frontal region was prepped and draped in sterile fashion. The previous incisions were reopened. The haley holes were re-explored and re-opened, and cherelle subdural fluid under pressure was evacuated. We then irrigated the subdural space until clear. A drain was placed through the right frontal haley hole extending posteriorly and sutured into place. The wound was then extensively irrigated and maximum hemostasis was secured. The wound was closed in anatomic layers. Job ID: [id number]
[2018-06-21] MEDS: CEFAZOLIN 2 GM/50 ML-DEXTROSE 2 GM in Premix Bag 1 BAG IVPB SCH (17:00)
[2018-06-21] MEDS ORDERED: CEFAZOLIN 1 GM VIAL ONE (20:31)
[2018-06-21] MEDS ORDERED: PROPOFOL 200 MG/20 ML VIAL ONE (20:31)
[2018-06-21] MEDS ORDERED: Sterile Water 10 ML VIAL ONE (20:31)
[2018-06-21] MEDS ORDERED: Lidocaine 1% PF 5 ML VIAL ONE (20:31)
[2018-06-21] MEDS: Rosuvastatin 10 MG TAB PO SCH (21:13)
[2018-06-22] MEDS: Acetaminophen 325 MG TAB PO SCH ×6 (02:00→20:06)
[2018-06-22] MEDS: CEFAZOLIN 2 GM/50 ML-DEXTROSE 2 GM in Premix Bag 1 BAG IVPB SCH ×3 (02:16→18:13)
[2018-06-22] MEDS: Levothyroxine Sodium 112 MCG TAB PO SCH (05:17)
[2018-06-22] MEDS: lamoTRIgine 100 MG TAB PO SCH (07:48)
[2018-06-22] MEDS: Bupropion 150 MG XL TAB PO SCH ×2 (07:50→20:06)
[2018-06-22] MEDS: DULoxetine 60 MG CAP PO SCH (07:50)
[2018-06-22] MEDS: Carvedilol 3.125 MG TAB PO SCH ×3 (07:51→18:12)
[2018-06-22] MEDS: Famotidine 20 MG TAB PO SCH ×2 (07:51→20:06)
[2018-06-22] MEDS: Fludrocortisone Acetate 0.1 MG TAB PO SCH (07:53)
--- NOTE | 2018-06-22 08:22 | CT ---
NONCONTRAST CT HEAD: DATE: 06/22/2018. HISTORY: Followup subdural hemorrhage evacuation. COMPARISON: 06/20/2018. FINDINGS: There has been interval placement of a right-sided subdural drain within the right subdural hematoma. Greatest transverse dimension of the right mixed-density subdural hemorrhage on today's examination is 1.5 cm and previously measured 2.3 cm. There is persistent mass effect on the right cerebral hem isphere with evidence of sulcal effacement and mild shift of the midline structures to the left measu ring approximately 4 mm, which is similar to the prior study. There is gas now present within a subd ural location likely related to placement of the subdural drain. The right parietal haley hole is aga in present. There is no acute cortical infarction or new area of hemorrhage seen. No other interval change from prior exam. IMPRESSION: 1. Interval placement of a right-sided subdural drain with mixed-density right subdural hemorrhage a gain seen. The greatest transverse dimension of the subdural collection has improved, but subdural h emorrhage does persist. 2. Stable mass effect right cerebral hemisphere with sulcal effacement and stable degree of shift of the midline structures to the left measuring 4 mm. POS: [facility]
[2018-06-22] MEDS: Potassium Chloride 10 MEQ TAB PO SCH (08:52)
--- NOTE | 2018-06-22 09:22 | PRG ---
DATE OF SERVICE: 06/22/2018 The patient is postoperative day #1, status post right-sided re-exploration of haley hole for evacuation of right-sided subdural hematoma. The patient has done well overnight with good pain control, he is tolerating a regular diet, and he is voiding appropriately. Subdural drain is in place and had 25 mL of output overnight. His repeat CT head shows improvement in subdural hematoma, but still a decent amount of residual subdural blood. On my exam, this morning, the patient is awake, alert, no acute distress. No focal neurologic deficits. Incisions are dry. Subdural drain is in place with dark red blood in the bulb. We will plan to leave the subdural drain in place and monitor in the ICU for another night. I anticipate possibly removal tomorrow with transition to the floor. Job ID: [id number] MTDD
--- NOTE | 2018-06-22 09:56 | PRG ---
DATE OF SERVICE: 06/22/2018 SUBJECTIVE: Mike Szymanski is awake, alert, responsive in the ICU, status post subdural evacuation. He has a drain in place. OBJECTIVE: VITAL SIGNS: His pulse is 72, blood pressure 118/97, sats any pain or difficulty breathing. CHEST: Decreased breath sounds. No wheezing. CARDIAC: Normal S1, S2. No gallops. ABDOMEN: Soft without any masses. status post drainage. PLAN: Continue observation in the ICU. Once the drain is removed, he can be transferred out. Job ID: [id number]
[2018-06-22] MEDS: Insulin Regular 300 UNITS/3 ML VIAL SC PRN ×2 (11:15→17:01)
--- NOTE | 2018-06-22 16:43 | PRG ---
DATE OF SERVICE: 06/22/2018 SUBJECTIVE: The patient remains on the critical care unit. He is postop day #1, status post right-sided reexploration of haley holes for evacuation of a right acute on chronic subdural hematoma. The patient tolerated the procedure well, had no issues overnight, tolerated a diet yesterday and this morning, states his pain was controlled. He has not yet been out of bed with physical therapy, but they expect that to happen later today. PHYSICAL EXAMINATION: VITAL SIGNS: Temperature is 98.7, heart rate 64, blood pressure 164/92, respirations 16, and oxygen saturation is 94% on room air. GENERAL: The patient is resting comfortably in bed. He is awake, alert, and oriented x3. Adrian Coma Scale is 15. HEENT: The patient has a drain in the right side of his scalp/skull. The remainder of his exam is unremarkable. LUNGS: Clear to auscultation with good inspiratory and expiratory efforts. HEART: Regular rate and rhythm. ABDOMEN: Soft, flat, nontender with active bowel sounds. EXTREMITIES: Neurovascularly intact x4. LABORATORY DATA: There are no labs to review this morning. RADIOGRAPHS: CT of the brain shows; 1. Interval placement of a right-sided subdural drain with mixed density right subdural hemorrhage again seen. The greatest transverse dimension of the subdural collection has improved, but the subdural hemorrhage does persist. 2. Stable mass-effect, right cerebral hemisphere with sulcal effacement and stable degree of shift of the midline structures to the left measuring 4 mm. ASSESSMENT: 1. Status post fall. 2. Acute on chronic subdural hematoma, status post subdural drain after re-exploration of haley holes. PLAN: Plan will be to continue supportive care and per neurosurgical request, the patient will stay on the CCU for one more day and then likely to the floor tomorrow. Job ID: [id number]
[2018-06-22] MEDS: Rosuvastatin 10 MG TAB PO SCH (20:07)
[2018-06-22] MEDS: hydrALAZINE 20 MG/ML VIAL SLOW IVP PRN (20:08)
[2018-06-23] MEDS: Acetaminophen 325 MG TAB PO SCH ×2 (01:08→05:57)
[2018-06-23] MEDS: CEFAZOLIN 2 GM/50 ML-DEXTROSE 2 GM in Premix Bag 1 BAG IVPB SCH (01:09)
[2018-06-23 01:23] VITALS: TEMP 98.6
[2018-06-23] MEDS: hydrALAZINE 20 MG/ML VIAL SLOW IVP PRN (03:02)
[2018-06-23] MEDS ORDERED: Lorazepam 2 MG/ML VIAL ONE ×2 (03:18→03:46)
[2018-06-23] MEDS ORDERED: Labetalol HCl 100 MG/20 ML VIAL SLOW IVP PRN (03:27)
[2018-06-23] MEDS ORDERED: Lorazepam 2 MG/ML VIAL SLOW IVP SCH ×2 (03:30→04:00)
[2018-06-23] MEDS ORDERED: Amiodarone 150 MG/3 ML VIAL ONE (04:00)
[2018-06-23] MEDS ORDERED: Calcium Chloride 1 GM/10 ML Abboject SYRINGE ONE ×2 (04:00→04:20)
[2018-06-23] MEDS ORDERED: levETIRAcetam In NaCl (Iso-Os) 1,000 MG in Premix Bag 1 BAG IVPB SCH (04:00)
[2018-06-23] MEDS ORDERED: EPINEPHrine 1 MG/10 ML Abboject SYRINGE ONE (04:00)
[2018-06-23] MEDS ORDERED: Magnesium 5 GM/10 ML Abboject SYRINGE ONE (04:00)
[2018-06-23] MEDS ORDERED: Sodium Bicarb 50 MEQ/50 ML Abboject 8.4% SYRINGE ONE (04:00)
[2018-06-23] MEDS ORDERED: Atropine Sulfate 1 mg/10 ml Syringe ONE (04:00)
[2018-06-23 04:18] LABS: #Basophils 0.2 thou/uL (0.0-0.2); #Eosinphils 0.4 thou/uL (0.0-0.7); #Lymphocytes 5.2 thou/uL (1.20-3.40); #Monocytes 0.9 thou/uL (0.11-0.59); #Neutrophils 4.3 thou/uL (1.40-6.50); %Basophils 1.6 % (0.0-1.0); %Eosinophils 3.9 % (0.0-10.0); %Lymphocytes 47.2 % (21.0-51.0); %Monocytes 7.9 % (0.0-10.0); %Neutrophils 39.4 % (42.0-75.0); Hemoglobin 15.8 g/dL (14.0-18.0); Mean Corpuscular HGB CONC 32.3 g/dL (32.0-36.0); Mean Corpuscular Hemoglobin 29.1 pg (27.0-31.0); Mean Corpuscular Volume 90.3 fL (78.0-98.0); Mean Platelet Volume 8.7 fL (7.4-10.4); Platelet Count 269 thou/uL (130-400); RBC Distribution Width 13.9 % (11.5-14.5); Red Blood Cell (RBC) Count 5.44 mill/uL (4.70-6.10)
[2018-06-23 04:37] LABS: Anion Gap 25 mmol/L (10-20); BUN (Urea Nitrogen) 10 mg/dL (8.4-25.7); Calc. Creatinine Clearance 87 mL/min (70-130); Calcium 8.9 mg/dL (7.8-10.44); Carbon Dioxide 17 mmol/L (23-31); Chloride 105 mmol/L (98-107); Estimated GFR-MDRD 60; Glucose 257 mg/dL (80-115); Phosphorus 4.2 mg/dL (2.3-4.7); Potassium 3.1 mmol/L (3.5-5.1); Sodium 144 mmol/L (136-145)
[2018-06-23] MEDS ORDERED: EPINEPHrine 1 MG/ML AMP ONE (04:39)
--- NOTE | 2018-06-23 05:03 | PDOC.EVN ---
Event Note - Event Note Event Note: Called to room by Juan C mcrae alert. arrived shortly thereafter to find CPR in progress. I supervised Dr. Carreno perform successful ET placement. ACLS guidelines followed for asystole, bradycardia, PEA, Torsades, and v-fib. RoSC achieved only briefly. In spite of our efforts, asystole developed. As a team we reviewed the course of the code, care interventions, and when no other interventions were recommended, patient was declared . See juan c mcrae note for details. Critical Care Time 0400 to 0445.
--- NOTE | 2018-06-23 05:44 | PRG ---
DATE OF SERVICE: 06/23/2018 RESIDENT: Gonzalo Carreno MD ATTENDING: Rayshawn Lowe MD PROCEDURES: 1. Code blue. 2. Endotracheal intubation. EVENT IN DETAIL: Juan C mcrae was called overhead at 0037 on 06/23/2018. I responded with Dr. Lowe approximately 3 minutes after the code was called. The patient's primary nurse stated that the patient had recently developed a subdural hematoma and had undergone surgical evacuation. He had a history of seizures and began having seizures this evening. Neurosurgery team had been called and ordered a repeat CT scan to evaluate subdural hematoma. Nurse stated he seized twice before going to the CT scanner and once while in the CT scanner. During these two events, the patient recovered to nearly baseline and was following commands and responsive. The patient was brought back to his room in the CCU and seized one final time, at which time, he became unresponsive. He had been given 2 to 3 rounds of Ativan to control the seizure and was in the process of having Keppra initiated at the time of the code. His first round of epinephrine was at 0359 hours. I successfully performed an endotracheal intubation using GlideScope for visualization at 0403 hours. A 7.5 cm endotracheal tube was placed, 26 cm at the lips. Color change capnography was used to verify placement. Good breath sounds were auscultated bilaterally. Code continued. He ended up receiving a total 9 rounds of epinephrine. He was initially found to be in PEA, which then switched to sinus bradycardia. In total, he received 1.5 mg of Atropine. After he was initially in sinus bradycardia, he developed a brief episode of torsades de pointes, for which he received asynchronized defibrillation and 2 mg of magnesium. Just prior to this, he received 1 amp of bicarbonate and 1 amp of calcium. Blood glucose was also checked, and his glucose was found to be over 200. After receiving magnesium, he was found to be in VFib twice. He received a total of 3 rounds of asynchronized cardioversion at 200 joules. He also received 2 rounds of amiodarone of 300 mg and 150 mg respectively. At 0420 hours, agonal rhythm was found, and the patient was noted to have agonal breathing and nonpurposeful hand movements. Options were discussed, and CPR was resumed. This was continued. Eventually, transcutaneous pacing was attempted to treat his sinus bradycardia/agonal rhythm. This was unsuccessful. At 0435 hours, no pulses were detected with doppler. [id number] ultrasound was brought to the bedside to visualize the patient's heart, no movement was noted at this time. The patient was determined to be in asystole on the EKG tracing. The code was stopped at 0436 hours and time of was pronounced. Laboratory data drawn during the code is still pending at this time. Dr. Lowe was present for the entire code. Approximately 45 minutes of critical care time were spent with Dr. Lowe present. Job ID: [id number] MTDD
[2018-06-23 05:55] VITALS: BP 197/103
[2018-06-23] MEDS: Levothyroxine Sodium 112 MCG TAB PO SCH (05:57)
--- NOTE | 2018-06-23 08:31 | CT ---
PRELIMINARY REPORT/[facility]/EMERGENTY AFTER-HOURS PROCEDURE CT Head Without Contrast EXAM DATE/TIME: 06/23/2018 3:31 AM CLINICAL HISTORY: 68 years old, male; Signs and symptoms; Other: Seizure; Prior surgery; Patient HX: S/P seizure; AMS TECHNIQUE: Axial computed tomography images of the head/brain without contrast. COMPARISON: CT Brain WO Con 06/22/2018 8:04 AM FINDINGS: Tubes, catheters and devices: Stable right subdural drain, tip located anteriorly. Brain: No significant change in appearance of the mixed attenuation large right subdural hematoma. St able mass effect with 4 mm right to left subfalcine herniation. No definite new hemorrhage. Stable pneumocephalus. Ventricles: No hydrocephalus. Bones/joints: [place] holes again noted. Sinuses: No acute sinusitis. Mastoid air cells: Normal as visualized. No mastoid effusion. Soft tissues: Stable. IMPRESSION: No significant change in subdural hemorrhage or mass effect. Thank you for allowing us to participate in the care of your patient. Dictated and Authenticated by: Geovani Ricks MD 06/23/2018 4:04 AM Central Time ([place] & [place]) CT BRAIN: Date: 06/23/18 Comparison made to previous exam from 06/22/18. FINDINGS: Noncontrast enhanced CT images of the brain demonstrate a right frontoparietal acute subdural hematom a. There has been interval placement of a subdural drain. This is unchanged since the previous compar tiffanie CT. There is slight decrease in the midline shift. Previously, there was approximately 4.0 mm of right to left shift, and now there is approximately 3.0 mm of right to left shift. No evidence of hy drocephalus seen. The ventricles are otherwise unremarkable. No other acute intracranial abnormality seen. IMPRESSION: Right-sided subdural hematoma with no significant increased midline shift. POS: [facility]
--- NOTE | 2018-06-24 10:46 | DIS ---
DATE OF ADMISSION: 06/19/2018 DATE OF DISCHARGE: 06/23/2018 SUMMARY DATE OF : 06/23/2018. ADMISSION DIAGNOSES: 1. Status post fall. 2. Acute on chronic subdural hematoma. 3. History of frequent falls. 4. History of prior right subdural hematoma requiring haley holes. CONSULTATIONS: Neurosurgery, Dr. Senior. PROCEDURES: Reopening of right-sided haley hole for evacuation of subdural hematoma. SUMMARY: The patient is a 68-year-old gentleman who reportedly had multiple falls most recently on the day of admission, who presented to the emergency department and underwent evaluation. On examination, was noted to have acute on chronic right subdural hematoma. The following day, the patient underwent his haley hole procedure and he returned to the critical care floor. The patient remained GCS of 15 throughout his stay here. He remained on the Critical Care floor postoperatively while his drain was in place and for close monitoring. On the patient's day of , he reportedly was doing well in the morning, appeared in good spirits, was tolerating a diet and had no pain. Much later that night, the patient reportedly had some seizure activities which were treated, and his CT scan showed no evolution of his hematoma. The patient reportedly had more seizure activity and then once his final seizure stopped, it appeared he had respiratory difficulty requiring bag valve mask resuscitation and became extremely bradycardic. Juan C Corrales was called. The patient underwent resuscitation PEA and looked to be agonal rhythm and then subsequently asystole which was confirmed by bedside echo, there was no heart movement. The patient was declared at 0450. His family was notified and Trauma Services requested that the patient be sent for autopsy in light of this sudden occurrence. Job ID: [id number]
--- NOTE | 2018-07-03 22:58 | EKG ---
Test Reason : Blood Pressure : / mmHG Vent. Rate : 084 BPM Atrial Rate : 084 BPM P-R Int : 194 ms QRS Dur : 150 ms QT Int : 418 ms P-R-T Axes : 013 -59 059 degrees QTc Int : 493 ms Normal sinus rhythm Left axis deviation Left ventricular hypertrophy with QRS widening and repolarization abnormality Abnormal ECG Confirmed by SHAR ARROYO, RENEE ([id number]), deputy editor in chief ZENON DURAND ([id number]) on 07/03/2018 10:57:22 PM Referred By: Confirmed By:RENEE MYLES MD
== END 2018-06-23 10:04 | disposition expired | DRG 27 ==
LOC: ERS 12:52 → CCU 14:22
PROVIDERS: ADMIT Surgery; ATTEND Surgery
PROC: 009430Z Drainage of Intracranial Subdural Space with Drainage Device, Percutaneous Approach (ICD-10-PCS; principal; 2018-06-21)
PROC: 0BH17EZ Insertion of Endotracheal Airway into Trachea, Via Natural or Artificial Opening (ICD-10-PCS; 2018-06-23)
PROC: 5A2204Z Restoration of Cardiac Rhythm, Single (ICD-10-PCS; 2018-06-23)
PROC: 5A12012 Performance of Cardiac Output, Single, Manual (ICD-10-PCS; 2018-06-23)
DX: S06.5X0A Traumatic subdural hemorrhage without loss of consciousness, initial encounter (principal); I25.10 Atherosclerotic heart disease of native coronary artery without angina pectoris; E11.42 Type 2 diabetes mellitus with diabetic polyneuropathy; K21.9 Gastro-esophageal reflux disease without esophagitis; E03.9 Hypothyroidism, unspecified; F31.9 Bipolar disorder, unspecified; Z51.5 Encounter for palliative care; G40.909 Epilepsy, unspecified, not intractable, without status epilepticus; I10 Essential (primary) hypertension; I62.03 Nontraumatic chronic subdural hemorrhage; E78.5 Hyperlipidemia, unspecified; E87.6 Hypokalemia; I46.9 Cardiac arrest, cause unspecified; I25.2 Old myocardial infarction; R29.6 Repeated falls; Z91.81 History of falling; Z86.73 Personal history of transient ischemic attack (TIA), and cerebral infarction without residual deficits; Z79.84 Long term (current) use of oral hypoglycemic drugs; Z79.899 Other long term (current) drug therapy; Z95.5 Presence of coronary angioplasty implant and graft; W19.XXXA Unspecified fall, initial encounter
CPT/HCPCS: 36415; 36416; 70450; 71045; 72141; 80048; 80053; 81003; 81015; 83735; 83880; 84100; 84484; 85025; 85610; 85730; 92950; 93005; 96360; A4216; G8978-GP-CL; G8979-GP-CJ; J0171; J0282; J0360; J0461; J0690; J1815; J1953; J2001; J2060; J2704; J3010; J3370; J3475